=== PATIENT | male | born 1960 | race Caucasian/White ===

== ENCOUNTER 2018-01-03 12:28 | Inpatient (IN) ==
[2018-01-03] MEDS ORDERED: SODIUM CHLORIDE 0.9% 500 ML IV STA (12:52)
[2018-01-03] MEDS ORDERED: PANTOPRAZOLE 40 MG VIAL IV STA (12:52)
[2018-01-03 13:02] LABS: Basophils % 0.1 % (0.0-0.8); Hematocrit 17.3 VOL% (42.0-52.0); Immature Granulocytes % 2.2 %; Immature Granulocytes Absolute 0.26 #; Lymphocytes # 2.1 10*3/uL (1.4-4.0); Lymphocytes % 17.3 % (21.2-54.2); Mean Corpuscular HGB Conc 30.1 GM/DL (32-36); Mean Corpuscular Hemoglobin 29 PG (27-34); Mean Corpuscular Volume 95.1 FL (87-102); Monocytes # 0.8 10*3/uL (0.11-0.8); Monocytes % 6.4 % (1.7-12.7); Neutrophils # 8.8 10*3/uL (1.4-7.4); Platelet Count 91 T/CUMM (130-400); Red Blood Count 1.82 MC/CUMM (3.8-5.5); Red Cell Distribution Width 15.6 % (9.3-17.3); White Blood Count 11.9 T/CUMM (4-12)
[2018-01-03] MEDS ORDERED: PANTOPRAZOLE 40 MG VIAL IV ONE (13:08)
[2018-01-03 13:26] LABS: INR 1.1; PT Patient Result 11.4 SECS
[2018-01-03 13:33] LABS: Hemoglobin 5.2 GM/DL (14.0-18.0)
[2018-01-03 13:36] LABS: Partial Thromboplastin Time 105.7 SECS (0-40)
[2018-01-03 13:42] LABS: Hypochromasia Slight; Macrocytosis 1+
[2018-01-03 13:47] LABS: Alanine Aminotransferase < 9 U/L (16-61); Albumin 2.3 G/DL (3.4-5.0); Alkaline Phosphatase 49 U/L (45-117); Aspartate Amino Transferase 11 U/L (0-37); Blood Urea Nitrogen 68 MG/DL (7-18); Calcium 7.3 MG/DL (8.5-10.1); Glucose 90 MG/DL (74-106); Osmolality,Calculated 294.7 MOS/KG (273-304); Potassium 5.3 MMOL/L (3.5-5.1); Sodium 138 MMOL/L (136-145); Total Protein 3.9 G/DL (6.4-8.3)
[2018-01-03] MEDS ORDERED: MORPHINE 2 MG/1 ML SYRINGE IV PRN (14:34)
[2018-01-03] MEDS ORDERED: diphenhydrAMINE CAP 25 MG CAPSULE PO PRN (14:34)
[2018-01-03] MEDS ORDERED: ACETAMINOPHEN 325 MG TABLET PO PRN (14:34)
[2018-01-03] MEDS ORDERED: guaiFENesin/DM ER 600-30 MG TABLET PO PRN (14:34)
[2018-01-03] MEDS ORDERED: ONDANSETRON 4 MG/2 ML VIAL IV PRN (14:34)
[2018-01-03] MEDS ORDERED: SODIUM CHLORIDE 0.9% 1,000 ML IV PRN (14:37)
[2018-01-03] MEDS ORDERED: SODIUM POLYSTYRENE SULFATE 15 GM/60 ML BOTTLE PO ONE (15:16)
[2018-01-03 16:35] LABS: Hematocrit 15.3 VOL% (42.0-52.0); Hemoglobin 4.5 GM/DL (14.0-18.0)
[2018-01-03] MEDS: PANTOPRAZOLE 40 MG VIAL IV SCH ×2 (17:28→22:14)
[2018-01-03] MEDS ORDERED: FUROSEMIDE 40 MG/4 ML VIAL IV ONE (17:43)
[2018-01-03] MEDS ORDERED: CALCIUM GLUCONATE 1,000 MG in SODIUM CHLORIDE 0.9% 100 ML IV ONE (20:11)
[2018-01-04 01:52] LABS: Hematocrit 23.6 VOL% (42.0-52.0)
[2018-01-04 01:54] LABS: Basophils % 0.2 % (0.0-0.8); Hematocrit 23.8 VOL% (42.0-52.0); Hemoglobin 7.6 GM/DL (14.0-18.0); Immature Granulocytes % 1.5 %; Immature Granulocytes Absolute 0.16 #; Lymphocytes # 2.2 10*3/uL (1.4-4.0); Lymphocytes % 20.6 % (21.2-54.2); Mean Corpuscular HGB Conc 31.9 GM/DL (32-36); Mean Corpuscular Hemoglobin 29 PG (27-34); Mean Corpuscular Volume 91.9 FL (87-102); Mean Platelet Volume 12.8 FL (9.6-12.0); Monocytes # 0.7 10*3/uL (0.11-0.8); Monocytes % 6.6 % (1.7-12.7); Neutrophils # 7.5 10*3/uL (1.4-7.4); Neutrophils % 71.1 % (38.7-73.9); Platelet Count 75 T/CUMM (130-400); Red Blood Count 2.59 MC/CUMM (3.8-5.5); Red Cell Distribution Width 15.7 % (9.3-17.3); White Blood Count 10.5 T/CUMM (4-12)
[2018-01-04 03:05] LABS: Alanine Aminotransferase < 6 U/L (16-61); Albumin 2.2 G/DL (3.4-5.0); Alkaline Phosphatase 50 U/L (45-117); Aspartate Amino Transferase 12 U/L (0-37); Blood Urea Nitrogen 66 MG/DL (7-18); Calcium 7.4 MG/DL (8.5-10.1); Glucose 75 MG/DL (74-106); Osmolality,Calculated 290.8 MOS/KG (273-304); Potassium 5.5 MMOL/L (3.5-5.1); Sodium 137 MMOL/L (136-145); Total Protein 3.9 G/DL (6.4-8.3)
[2018-01-04 03:31] LABS: Anisocytosis 1+; Poikilocytosis 1+
[2018-01-04 05:46] LABS: Hematocrit 21.8 VOL% (42.0-52.0); Hemoglobin 6.8 GM/DL (14.0-18.0)
[2018-01-04] MEDS ORDERED: SODIUM CHLORIDE 0.9% 1,000 ML IV PRN (07:12)
[2018-01-04 08:02] LABS: Hematocrit 24.7 VOL% (42.0-52.0); Hemoglobin 7.8 GM/DL (14.0-18.0)
[2018-01-04] MEDS: SODIUM CHLORIDE 0.9% 1,000 ML IV SCH (08:36)
[2018-01-04] MEDS: PANTOPRAZOLE 40 MG VIAL IV SCH ×2 (09:03→21:36)
[2018-01-04] MEDS: BISACODYL 5 MG TABLET PO SCH ×3 (09:03→23:29)
[2018-01-04] MEDS: MYCOPHENOLATE 180 MG TABLET PO SCH (10:37)
[2018-01-04] MEDS: predniSONE 10 MG TABLET PO SCH (10:37)
[2018-01-04] MEDS ORDERED: FUROSEMIDE 40 MG/4 ML VIAL IV ONE (11:00)
[2018-01-04] MEDS ORDERED: CALCIUM GLUCONATE 1,000 MG in SODIUM CHLORIDE 0.9% 100 ML IV ONE (11:00)
[2018-01-04 11:12] LABS: PT Patient Result 10.7 SECS; Partial Thromboplastin Time 32.7 SECS (0-40)
[2018-01-04] MEDS ORDERED: POLYETHYLENE GLYCOL 3350/ELECTROLYTES 4,000 ML BOTTLE NG ONE (17:00)
[2018-01-04 18:20] LABS: Hematocrit 32.2 VOL% (42.0-52.0); Hemoglobin 10.6 GM/DL (14.0-18.0)
[2018-01-04] MEDS ORDERED: MAGNESIUM CITRATE 300 ML BOTTLE PO ONE (21:00)
[2018-01-04] MEDS: TAMSULOSIN 0.4 MG CAPSULE PO SCH (21:36)
[2018-01-05 03:55] LABS: Calcium 7.9 MG/DL (8.5-10.1); Osmolality,Calculated 285.1 MOS/KG (273-304)
[2018-01-05 07:31] LABS: Hematocrit 31.5 VOL% (42.0-52.0); Hemoglobin 10.3 GM/DL (14.0-18.0)
[2018-01-05] MEDS: SODIUM BICARBONATE 650 MG TABLET PO SCH ×2 (08:42→20:52)
[2018-01-05] MEDS: MYCOPHENOLATE 180 MG TABLET PO SCH (08:42)
[2018-01-05] MEDS: PANTOPRAZOLE 40 MG VIAL IV SCH ×2 (08:42→20:53)
[2018-01-05] MEDS: predniSONE 10 MG TABLET PO SCH (08:42)
[2018-01-05] MEDS ORDERED: PROPOFOL 200 MG/20 ML VIAL IV ONE (11:19)
[2018-01-05] MEDS ORDERED: LIDOCAINE 2% 5 ML VIAL ONE (11:19)
[2018-01-05 19:27] LABS: Hematocrit 28.9 VOL% (42.0-52.0); Hemoglobin 9.8 GM/DL (14.0-18.0)
[2018-01-05] MEDS: TAMSULOSIN 0.4 MG CAPSULE PO SCH (20:53)
[2018-01-06 05:57] LABS: Hematocrit 27.4 VOL% (42.0-52.0); Hemoglobin 9.3 GM/DL (14.0-18.0)
[2018-01-06 07:34] VITALS: BP 144/90
[2018-01-06 08:02] LABS: Calcium 7.2 MG/DL (8.5-10.1); Osmolality,Calculated 295.5 MOS/KG (273-304); Potassium 4.3 MMOL/L (3.5-5.1)
[2018-01-06] MEDS: PANTOPRAZOLE 40 MG VIAL IV SCH (09:06)
[2018-01-06] MEDS: predniSONE 10 MG TABLET PO SCH (09:06)
[2018-01-06] MEDS: MYCOPHENOLATE 180 MG TABLET PO SCH (09:06)
[2018-01-06] MEDS: SODIUM BICARBONATE 650 MG TABLET PO SCH (09:06)
[2018-01-06] MEDS ORDERED: HEPARIN LOCK FLUSH 500 UNIT/5 ML SYRINGE IV ONE (09:38)
[2018-01-06] MEDS ORDERED: EPOETIN ALFA 10,000 UNIT/1 ML VIAL SUBCUT ONE (10:00)
== END 2018-01-06 10:41 | disposition home or self-care (01) | DRG 378 ==
LOC: EDUNIT# → EDBD → N.ED 12:28 → N.EDINP 14:34 → N.5E 15:45 → N.CC 18:01 → N.ICU 01-04 16:53 → N.2E 01-05 16:21
PROVIDERS: ADMIT Internal Medicine Infectious Disease; ATTEND Internal Medicine Infectious Disease

== ENCOUNTER 2018-02-06 17:21 | Inpatient (IN) ==
[2018-02-06] MEDS ORDERED: PANTOPRAZOLE 40 MG VIAL IV STA (18:55)
[2018-02-06 19:13] LABS: Hematocrit 22.7 VOL% (42.0-52.0); Hemoglobin 6.9 GM/DL (14.0-18.0); Red Blood Count 2.51 MC/CUMM (3.8-5.5); White Blood Count 9.1 T/CUMM (4-12)
[2018-02-06 19:14] LABS: Basophils % 0.1 % (0.0-0.8); Immature Granulocytes % 0.8 %; Immature Granulocytes Absolute 0.07 #; Lymphocytes # 0.9 10*3/uL (1.4-4.0); Mean Corpuscular HGB Conc 30.4 GM/DL (32-36); Mean Corpuscular Hemoglobin 28 PG (27-34); Mean Corpuscular Volume 90.4 FL (87-102); Mean Platelet Volume 12.8 FL (9.6-12.0); Monocytes # 0.5 10*3/uL (0.11-0.8); Neutrophils # 7.7 10*3/uL (1.4-7.4); Neutrophils % 84.1 % (38.7-73.9); Platelet Count 83 T/CUMM (130-400); Red Cell Distribution Width 15.9 % (9.3-17.3)
[2018-02-06 19:18] LABS: INR 1.1; PT Patient Result 11.4 SECS; Partial Thromboplastin Time 38.6 SECS (0-40)
[2018-02-06] MEDS ORDERED: PANTOPRAZOLE 40 MG VIAL IV ONE (19:20)
[2018-02-06 19:26] LABS: Alanine Aminotransferase < 9 U/L (16-61); Albumin 2.2 G/DL (3.4-5.0); Alkaline Phosphatase 60 U/L (45-117); Aspartate Amino Transferase 16 U/L (0-37); Blood Urea Nitrogen 43 MG/DL (7-18); Calcium 7.5 MG/DL (8.5-10.1); Glucose 89 MG/DL (74-106); Osmolality,Calculated 275.4 MOS/KG (273-304); Potassium 5.2 MMOL/L (3.5-5.1); Sodium 133 MMOL/L (136-145); Total Protein 4.3 G/DL (6.4-8.3); Troponin I Only < 0.015 NG/ML (0.00-0.045)
[2018-02-06] MEDS ORDERED: SODIUM CHLORIDE 0.9% 1,000 ML IV PRN (20:09)
[2018-02-06 20:20] LABS: Lymphocytes 6 % (20-55); Segmented Neutrophils 93 % (50-85); Total Cells Counted 100
[2018-02-06 20:21] LABS: Anisocytosis 1+; Hypochromasia 1+
[2018-02-06 20:22] LABS: Acanthocytes Few; Ovalocytes Few
[2018-02-06 20:23] LABS: Platelet Estimate Decreased
[2018-02-06] MEDS ORDERED: TAMSULOSIN 0.4 MG CAPSULE PO SCH (21:00)
[2018-02-06] MEDS ORDERED: PRAVASTATIN 20 MG TABLET PO SCH (21:00)
[2018-02-06] MEDS ORDERED: METOCLOPRAMIDE 10 MG TABLET PO SCH (21:00)
[2018-02-06] MEDS: SODIUM BICARBONATE 650 MG TABLET PO SCH (22:40)
[2018-02-06] MEDS: PROPRANOLOL 20 MG TABLET PO SCH (22:41)
[2018-02-06] MEDS: MAGNESIUM OXIDE 400 MG TABLET PO SCH (22:41)
[2018-02-07 06:12] LABS: Basophils % 0.1 % (0.0-0.8); Hematocrit 25.7 VOL% (42.0-52.0); Immature Granulocytes % 0.8 %; Immature Granulocytes Absolute 0.07 #; Lymphocytes # 1.3 10*3/uL (1.4-4.0); Lymphocytes % 14.4 % (21.2-54.2); Mean Corpuscular HGB Conc 32.3 GM/DL (32-36); Mean Corpuscular Hemoglobin 29 PG (27-34); Mean Corpuscular Volume 89.2 FL (87-102); Mean Platelet Volume 12.6 FL (9.6-12.0); Monocytes # 0.7 10*3/uL (0.11-0.8); Neutrophils # 7.2 10*3/uL (1.4-7.4); Neutrophils % 77.7 % (38.7-73.9); Platelet Count 75 T/CUMM (130-400); Red Blood Count 2.88 MC/CUMM (3.8-5.5); Red Cell Distribution Width 15.4 % (9.3-17.3); White Blood Count 9.2 T/CUMM (4-12)
[2018-02-07 06:32] LABS: Hemoglobin 8.3 GM/DL (14.0-18.0)
[2018-02-07 06:38] LABS: Platelet Estimate Decreased
[2018-02-07 06:41] LABS: Calcium 7.3 MG/DL (8.5-10.1); Osmolality,Calculated 274.5 MOS/KG (273-304); Potassium 5.1 MMOL/L (3.5-5.1)
[2018-02-07] MEDS ORDERED: ALLOPURINOL 100 MG TABLET PO SCH (09:00)
[2018-02-07] MEDS ORDERED: RAMIPRIL 5 MG CAPSULE PO SCH (09:00)
[2018-02-07] MEDS ORDERED: PANTOPRAZOLE 40 MG TABLET PO SCH (09:00)
[2018-02-07] MEDS ORDERED: MYCOPHENOLATE 180 MG TABLET PO SCH (09:00)
[2018-02-07] MEDS ORDERED: METOCLOPRAMIDE 10 MG TABLET PO SCH (09:00)
[2018-02-07] MEDS ORDERED: predniSONE 10 MG TABLET PO SCH (09:00)
[2018-02-07] MEDS: SODIUM BICARBONATE 650 MG TABLET PO SCH (09:27)
[2018-02-07] MEDS: MAGNESIUM OXIDE 400 MG TABLET PO SCH (09:27)
[2018-02-07] MEDS: PROPRANOLOL 20 MG TABLET PO SCH (09:27)
[2018-02-07 12:32] VITALS: BP 102/66
== END 2018-02-07 14:36 | disposition home or self-care (01) | DRG 392 ==
LOC: N.ED 17:21 → N.EDINP 20:48 → N.4E 21:27
PROVIDERS: ADMIT Hospitalist; ATTEND Hospitalist

== ENCOUNTER 2018-02-27 19:36 | Inpatient (IN) ==
[2018-02-27] MEDS ORDERED: SODIUM CHLORIDE 0.9% 1,000 ML IV STA (20:24)
[2018-02-27] MEDS ORDERED: ALBUTEROL/IPRATROPIUM 3 ML NEB RESP TX STA (20:24)
[2018-02-27] MEDS ORDERED: MEROPENEM 1,000 MG in SODIUM CHLORIDE 0.9% 100 ML IV STA (20:24)
[2018-02-27] MEDS ORDERED: ONDANSETRON 4 MG/2 ML VIAL IV STA (20:24)
[2018-02-27] MEDS ORDERED: ASPIRIN 325 MG TABLET PO STA (21:43)
[2018-02-27] MEDS ORDERED: MORPHINE 4 MG/1 ML VIAL IV STA (21:43)
[2018-02-27 22:26] LABS: Hematocrit 24.5 VOL% (42.0-52.0); Hemoglobin 7.3 GM/DL (14.0-18.0); Immature Granulocytes % 0.4 %; Immature Granulocytes Absolute 0.02 #; Lymphocytes # 0.8 10*3/uL (1.4-4.0); Lymphocytes % 14.5 % (21.2-54.2); Mean Corpuscular HGB Conc 29.8 GM/DL (32-36); Mean Corpuscular Hemoglobin 27 PG (27-34); Mean Corpuscular Volume 91.8 FL (87-102); Mean Platelet Volume 13.4 FL (9.6-12.0); Monocytes # 0.4 10*3/uL (0.11-0.8); Monocytes % 8.2 % (1.7-12.7); Neutrophils # 4.2 10*3/uL (1.4-7.4); Neutrophils % 76.9 % (38.7-73.9); Red Blood Count 2.67 MC/CUMM (3.8-5.5); Red Cell Distribution Width 15.9 % (9.3-17.3); White Blood Count 5.4 T/CUMM (4-12)
[2018-02-27 22:32] LABS: Platelet Count 42 T/CUMM (130-400)
[2018-02-27 22:33] LABS: INR 1.1; PT Patient Result 11.2 SECS; Partial Thromboplastin Time 36.2 SECS (0-40)
[2018-02-27 22:46] LABS: Alanine Aminotransferase < 9 U/L (16-61); Albumin 1.8 G/DL (3.4-5.0); Alkaline Phosphatase 62 U/L (45-117); Aspartate Amino Transferase 8 U/L (0-37); Blood Urea Nitrogen 84 MG/DL (7-18); Calcium 7.2 MG/DL (8.5-10.1); Glucose 92 MG/DL (74-106); Osmolality,Calculated 295.1 MOS/KG (273-304); Potassium 4.8 MMOL/L (3.5-5.1); Sodium 135 MMOL/L (136-145); Total Protein 4.1 G/DL (6.4-8.3)
[2018-02-27 22:49] LABS: Band Neutrophils 7 % (0-10); Lymphocytes 15 % (20-55); Segmented Neutrophils 72 % (50-85); Total Cells Counted 100
[2018-02-27] MEDS ORDERED: ACETAMINOPHEN 325 MG TABLET PO PRN (23:12)
[2018-02-27] MEDS ORDERED: ALBUTEROL/IPRATROPIUM 3 ML NEB RESP TX PRN (23:12)
[2018-02-27] MEDS ORDERED: ONDANSETRON 4 MG/2 ML VIAL IV PRN (23:12)
[2018-02-27] MEDS ORDERED: LEVOFLOXACIN INJ 500 MG in PREMIX 1 EACH IV ONE (23:30)
[2018-02-27 23:56] LABS: Hypochromasia 1+; Polychromasia Few
[2018-02-27 23:57] LABS: Elliptocytes 1+; Ovalocytes 1+; Platelet Estimate Decreased
[2018-02-28] MEDS ORDERED: ACETAMINOPHEN 500 MG TABLET PO PRN (00:11)
[2018-02-28] MEDS ORDERED: SODIUM CHLORIDE 0.9% 1,000 ML IV PRN ×2 (01:09→11:18)
[2018-02-28] MEDS: PIPERACILLIN/TAZOBACTAM 3,375 MG in SODIUM CHLORIDE 0.9% 100 ML IV SCH ×3 (01:40→23:38)
[2018-02-28] MEDS: TAMSULOSIN 0.4 MG CAPSULE PO SCH ×2 (01:40→20:19)
[2018-02-28] MEDS: MAGNESIUM OXIDE 400 MG TABLET PO SCH ×2 (08:12→20:19)
[2018-02-28] MEDS: SODIUM BICARBONATE 650 MG TABLET PO SCH ×2 (08:12→20:20)
[2018-02-28] MEDS: PROPRANOLOL 20 MG TABLET PO SCH ×2 (08:12→20:20)
[2018-02-28] MEDS: FERROUS SULFATE 325 MG TABLET PO SCH ×2 (08:12→20:20)
[2018-02-28] MEDS: ALLOPURINOL 100 MG TABLET PO SCH (08:12)
[2018-02-28] MEDS: predniSONE 10 MG TABLET PO SCH (08:13)
[2018-02-28] MEDS: MYCOPHENOLATE 180 MG TABLET PO SCH (08:13)
[2018-02-28] MEDS: PANTOPRAZOLE 40 MG TABLET PO SCH (08:13)
[2018-02-28] MEDS: METOCLOPRAMIDE 5 MG TABLET PO SCH ×2 (08:13→20:19)
[2018-02-28] MEDS ORDERED: PANTOPRAZOLE 40 MG TABLET PO SCH (09:00)
[2018-02-28] MEDS ORDERED: ENOXAPARIN 30 MG/0.3 ML SYRINGE SUBCUT SCH (09:00)
[2018-02-28 09:32] LABS: Hematocrit 28.1 VOL% (42.0-52.0); Immature Granulocytes % 0.4 %; Immature Granulocytes Absolute 0.02 #; Lymphocytes # 0.8 10*3/uL (1.4-4.0); Lymphocytes % 15.9 % (21.2-54.2); Mean Corpuscular HGB Conc 32.7 GM/DL (32-36); Mean Corpuscular Hemoglobin 28 PG (27-34); Mean Corpuscular Volume 86.7 FL (87-102); Mean Platelet Volume 13.1 FL (9.6-12.0); Monocytes # 0.4 10*3/uL (0.11-0.8); Monocytes % 7.8 % (1.7-12.7); Neutrophils # 3.8 10*3/uL (1.4-7.4); Neutrophils % 75.9 % (38.7-73.9); Red Cell Distribution Width 15.6 % (9.3-17.3)
[2018-02-28 09:37] LABS: Hemoglobin 9.2 GM/DL (14.0-18.0); Red Blood Count 3.24 MC/CUMM (3.8-5.5)
[2018-02-28 09:39] LABS: Platelet Count 38 T/CUMM (130-400)
[2018-02-28 10:00] LABS: Alanine Aminotransferase < 6 U/L (16-61); Albumin 1.8 G/DL (3.4-5.0); Alkaline Phosphatase 61 U/L (45-117); Aspartate Amino Transferase 13 U/L (0-37); Blood Urea Nitrogen 76 MG/DL (7-18); Calcium 6.9 MG/DL (8.5-10.1); Glucose 96 MG/DL (74-106); Osmolality,Calculated 295.8 MOS/KG (273-304); Potassium 4.7 MMOL/L (3.5-5.1); Sodium 137 MMOL/L (136-145); Total Protein 3.7 G/DL (6.4-8.3)
[2018-02-28 10:39] LABS: Band Neutrophils 1 % (0-10); Hypochromasia 1+; Lymphocytes 10 % (20-55); Microcytosis 1+; Ovalocytes Slight; Platelet Estimate Decreased; Segmented Neutrophils 85 % (50-85); Total Cells Counted 100
[2018-02-28 17:24] LABS: Hematocrit 27.8 VOL% (42.0-52.0); Hemoglobin 8.8 GM/DL (14.0-18.0)
[2018-02-28] MEDS: PRAVASTATIN 20 MG TABLET PO SCH (20:20)
[2018-02-28] MEDS: OXYBUTYNIN XL 5 MG TABLET PO SCH (20:20)
[2018-02-28] MEDS: ASPIRIN CHEW 81 MG TABLET PO SCH (20:20)
[2018-03-01 01:26] LABS: Hematocrit 25.9 VOL% (42.0-52.0); Hemoglobin 8.3 GM/DL (14.0-18.0)
[2018-03-01 06:55] LABS: Hematocrit 27.3 VOL% (42.0-52.0); Hemoglobin 8.8 GM/DL (14.0-18.0)
[2018-03-01 06:57] LABS: Basophils % 0.2 % (0.0-0.8); Hematocrit 27.6 VOL% (42.0-52.0); Hemoglobin 8.9 GM/DL (14.0-18.0); Immature Granulocytes % 0.8 %; Immature Granulocytes Absolute 0.04 #; Lymphocytes # 0.9 10*3/uL (1.4-4.0); Lymphocytes % 17.2 % (21.2-54.2); Mean Corpuscular HGB Conc 32.2 GM/DL (32-36); Mean Corpuscular Hemoglobin 28 PG (27-34); Mean Corpuscular Volume 87.6 FL (87-102); Mean Platelet Volume 13.9 FL (9.6-12.0); Monocytes # 0.3 10*3/uL (0.11-0.8); Monocytes % 6.9 % (1.7-12.7); Neutrophils # 3.7 10*3/uL (1.4-7.4); Neutrophils % 74.9 % (38.7-73.9); Red Blood Count 3.15 MC/CUMM (3.8-5.5); Red Cell Distribution Width 15.9 % (9.3-17.3); White Blood Count 4.9 T/CUMM (4-12)
[2018-03-01 07:12] LABS: Platelet Count 35 T/CUMM (130-400)
[2018-03-01 07:25] LABS: Alanine Aminotransferase < 6 U/L (16-61); Albumin 1.7 G/DL (3.4-5.0); Alkaline Phosphatase 66 U/L (45-117); Aspartate Amino Transferase 13 U/L (0-37); Blood Urea Nitrogen 70 MG/DL (7-18); Calcium 7.1 MG/DL (8.5-10.1); Glucose 87 MG/DL (74-106); Osmolality,Calculated 294.7 MOS/KG (273-304); Potassium 4.3 MMOL/L (3.5-5.1); Sodium 138 MMOL/L (136-145); Total Protein 3.7 G/DL (6.4-8.3)
[2018-03-01 07:36] LABS: Eosinophils 1 % (0-10); Hypochromasia 1+; Lymphocytes 10 % (20-55); Microcytosis 1+; Segmented Neutrophils 88 % (50-85); Total Cells Counted 100
[2018-03-01 07:37] LABS: Ovalocytes Slight; Platelet Estimate Decreased
[2018-03-01] MEDS: ALLOPURINOL 100 MG TABLET PO SCH (08:12)
[2018-03-01] MEDS: predniSONE 10 MG TABLET PO SCH (08:12)
[2018-03-01] MEDS: PROPRANOLOL 20 MG TABLET PO SCH ×2 (08:12→21:31)
[2018-03-01] MEDS: FERROUS SULFATE 325 MG TABLET PO SCH ×2 (08:13→21:32)
[2018-03-01] MEDS: MYCOPHENOLATE 180 MG TABLET PO SCH (08:13)
[2018-03-01] MEDS: PANTOPRAZOLE 40 MG TABLET PO SCH (08:13)
[2018-03-01] MEDS: METOCLOPRAMIDE 5 MG TABLET PO SCH ×2 (08:13→21:31)
[2018-03-01] MEDS: SODIUM BICARBONATE 650 MG TABLET PO SCH ×2 (08:13→21:31)
[2018-03-01] MEDS: MAGNESIUM OXIDE 400 MG TABLET PO SCH ×2 (08:13→21:31)
[2018-03-01] MEDS: PIPERACILLIN/TAZOBACTAM 3,375 MG in SODIUM CHLORIDE 0.9% 100 ML IV SCH (11:22)
[2018-03-01 12:13] LABS: Hematocrit 26.8 VOL% (42.0-52.0); Hemoglobin 8.4 GM/DL (14.0-18.0)
[2018-03-01 18:15] LABS: Hemoglobin 8.4 GM/DL (14.0-18.0)
[2018-03-01] MEDS: TAMSULOSIN 0.4 MG CAPSULE PO SCH (21:31)
[2018-03-01] MEDS: OXYBUTYNIN XL 5 MG TABLET PO SCH (21:31)
[2018-03-01] MEDS: ASPIRIN CHEW 81 MG TABLET PO SCH (21:31)
[2018-03-01] MEDS: PRAVASTATIN 20 MG TABLET PO SCH (21:31)
[2018-03-01] MEDS: LEVOFLOXACIN INJ 250 MG in PREMIX 1 EACH IV SCH (22:32)
[2018-03-02] MEDS: PIPERACILLIN/TAZOBACTAM 3,375 MG in SODIUM CHLORIDE 0.9% 100 ML IV SCH ×4 (00:11→23:02)
[2018-03-02 08:10] LABS: Calcium 7.1 MG/DL (8.5-10.1); Osmolality,Calculated 291.8 MOS/KG (273-304)
[2018-03-02 08:33] LABS: Eosinophils % 0.5 % (0.00-10.9); Hematocrit 25.8 VOL% (42.0-52.0); Hemoglobin 8.1 GM/DL (14.0-18.0); Immature Granulocytes % 0.5 %; Immature Granulocytes Absolute 0.02 #; Lymphocytes # 0.7 10*3/uL (1.4-4.0); Lymphocytes % 15.4 % (21.2-54.2); Mean Corpuscular HGB Conc 31.4 GM/DL (32-36); Mean Corpuscular Hemoglobin 29 PG (27-34); Mean Corpuscular Volume 91.2 FL (87-102); Mean Platelet Volume 13.5 FL (9.6-12.0); Monocytes # 0.3 10*3/uL (0.11-0.8); Monocytes % 6.3 % (1.7-12.7); Neutrophils # 3.4 10*3/uL (1.4-7.4); Neutrophils % 77.3 % (38.7-73.9); Red Blood Count 2.83 MC/CUMM (3.8-5.5); Red Cell Distribution Width 15.7 % (9.3-17.3); White Blood Count 4.4 T/CUMM (4-12)
[2018-03-02 08:40] LABS: Platelet Count 54 T/CUMM (130-400)
[2018-03-02 09:19] LABS: Elliptocytes 1+; Hypochromasia Slight; Platelet Estimate Decreased; Poikilocytosis Slight
[2018-03-02] MEDS: METOCLOPRAMIDE 5 MG TABLET PO SCH ×2 (09:56→20:53)
[2018-03-02] MEDS: MAGNESIUM OXIDE 400 MG TABLET PO SCH ×2 (09:56→20:53)
[2018-03-02] MEDS: FERROUS SULFATE 325 MG TABLET PO SCH ×2 (09:56→20:56)
[2018-03-02] MEDS: PANTOPRAZOLE 40 MG TABLET PO SCH (09:56)
[2018-03-02] MEDS: MYCOPHENOLATE 180 MG TABLET PO SCH (09:56)
[2018-03-02] MEDS: SODIUM BICARBONATE 650 MG TABLET PO SCH ×2 (09:56→20:52)
[2018-03-02] MEDS: ALLOPURINOL 100 MG TABLET PO SCH (09:56)
[2018-03-02] MEDS: PROPRANOLOL 20 MG TABLET PO SCH ×2 (09:57→20:52)
[2018-03-02] MEDS: predniSONE 10 MG TABLET PO SCH (09:57)
[2018-03-02] MEDS ORDERED: LIDOCAINE 2% VISCOUS 100 ML BOTTLE SWISH/SWAL PRN (13:02)
[2018-03-02] MEDS: SUCRALFATE 1 GM/10 ML UDCUP PO SCH ×2 (17:00→20:53)
[2018-03-02] MEDS: TAMSULOSIN 0.4 MG CAPSULE PO SCH (20:52)
[2018-03-02] MEDS: PRAVASTATIN 20 MG TABLET PO SCH (20:52)
[2018-03-02] MEDS: ASPIRIN CHEW 81 MG TABLET PO SCH (20:52)
[2018-03-02] MEDS: OXYBUTYNIN XL 5 MG TABLET PO SCH (20:53)
[2018-03-03 05:33] LABS: Eosinophils % 0.2 % (0.00-10.9); Hematocrit 27.4 VOL% (42.0-52.0); Hemoglobin 8.4 GM/DL (14.0-18.0); Immature Granulocytes % 1.1 %; Immature Granulocytes Absolute 0.05 #; Lymphocytes # 0.7 10*3/uL (1.4-4.0); Mean Corpuscular HGB Conc 30.7 GM/DL (32-36); Mean Corpuscular Hemoglobin 28 PG (27-34); Mean Platelet Volume 13.3 FL (9.6-12.0); Monocytes # 0.3 10*3/uL (0.11-0.8); Monocytes % 6.2 % (1.7-12.7); Neutrophils # 3.5 10*3/uL (1.4-7.4); Neutrophils % 77.5 % (38.7-73.9); Platelet Count 49 T/CUMM (130-400); Red Blood Count 3.01 MC/CUMM (3.8-5.5); Red Cell Distribution Width 15.5 % (9.3-17.3); White Blood Count 4.5 T/CUMM (4-12)
[2018-03-03 05:51] LABS: Hypochromasia 1+; Ovalocytes Slight; Platelet Estimate Decreased
[2018-03-03 05:52] LABS: Giant Platelets Few; Microcytosis Slight
[2018-03-03] MEDS: SUCRALFATE 1 GM/10 ML UDCUP PO SCH ×4 (06:35→20:09)
[2018-03-03] MEDS: ALLOPURINOL 100 MG TABLET PO SCH (09:53)
[2018-03-03] MEDS: FERROUS SULFATE 325 MG TABLET PO SCH ×2 (09:54→20:08)
[2018-03-03] MEDS: MAGNESIUM OXIDE 400 MG TABLET PO SCH ×2 (09:54→20:08)
[2018-03-03] MEDS: MYCOPHENOLATE 180 MG TABLET PO SCH (09:54)
[2018-03-03] MEDS: predniSONE 10 MG TABLET PO SCH (09:54)
[2018-03-03] MEDS: PROPRANOLOL 20 MG TABLET PO SCH ×2 (09:54→20:09)
[2018-03-03] MEDS: METOCLOPRAMIDE 5 MG TABLET PO SCH ×2 (09:54→20:08)
[2018-03-03] MEDS: PANTOPRAZOLE 40 MG TABLET PO SCH (09:55)
[2018-03-03] MEDS: SODIUM BICARBONATE 650 MG TABLET PO SCH ×2 (09:55→20:07)
[2018-03-03] MEDS: PIPERACILLIN/TAZOBACTAM 3,375 MG in SODIUM CHLORIDE 0.9% 100 ML IV SCH ×2 (10:35→23:48)
[2018-03-03] MEDS: SODIUM CHLORIDE 0.9% 1,000 ML IV SCH ×2 (17:55→20:10)
[2018-03-03] MEDS ORDERED: PANTOPRAZOLE 40 MG VIAL IV SCH (18:00)
[2018-03-03 18:32] LABS: Basophils % 0.1 % (0.0-0.8); Hematocrit 26.1 VOL% (42.0-52.0); Hemoglobin 7.9 GM/DL (14.0-18.0); Immature Granulocytes % 0.8 %; Immature Granulocytes Absolute 0.07 #; Lymphocytes # 1.2 10*3/uL (1.4-4.0); Lymphocytes % 12.7 % (21.2-54.2); Mean Corpuscular HGB Conc 30.3 GM/DL (32-36); Mean Corpuscular Hemoglobin 28 PG (27-34); Mean Corpuscular Volume 93.9 FL (87-102); Mean Platelet Volume 14.4 FL (9.6-12.0); Monocytes # 0.6 10*3/uL (0.11-0.8); Monocytes % 6.1 % (1.7-12.7); Neutrophils # 7.5 10*3/uL (1.4-7.4); Neutrophils % 80.3 % (38.7-73.9); Red Blood Count 2.78 MC/CUMM (3.8-5.5); Red Cell Distribution Width 15.4 % (9.3-17.3); White Blood Count 9.3 T/CUMM (4-12)
[2018-03-03 18:36] LABS: Platelet Count 50 T/CUMM (130-400)
[2018-03-03 18:51] LABS: Calcium 6.9 MG/DL (8.5-10.1); Osmolality,Calculated 294.7 MOS/KG (273-304); Potassium 4.7 MMOL/L (3.5-5.1)
[2018-03-03 18:55] LABS: Platelet Estimate Decreased
[2018-03-03] MEDS ORDERED: NOREPINEPHRINE 4 MG/4 ML VIAL IV ONE (19:09)
[2018-03-03] MEDS ORDERED: NOREPINEPHRINE 16 MG in SODIUM CHLORIDE 0.9% 234 ML IV PRN (19:15)
[2018-03-03] MEDS ORDERED: SODIUM CHLORIDE 0.9% 1,000 ML IV PRN ×2 (19:22→19:23)
[2018-03-03] MEDS: TAMSULOSIN 0.4 MG CAPSULE PO SCH (20:07)
[2018-03-03] MEDS: PRAVASTATIN 20 MG TABLET PO SCH (20:08)
[2018-03-03] MEDS: PANTOPRAZOLE 40 MG VIAL IV SCH (20:09)
[2018-03-03] MEDS: OXYBUTYNIN XL 5 MG TABLET PO SCH (20:09)
[2018-03-03] MEDS: ASPIRIN CHEW 81 MG TABLET PO SCH (20:09)
[2018-03-03 23:09] LABS: Hematocrit 26.8 VOL% (42.0-52.0); Hemoglobin 8.4 GM/DL (14.0-18.0)
[2018-03-03] MEDS: LEVOFLOXACIN INJ 250 MG in PREMIX 1 EACH IV SCH (23:45)
[2018-03-04 07:50] LABS: Basophils % 0.2 % (0.0-0.8); Eosinophils % 0.2 % (0.00-10.9); Hematocrit 31.5 VOL% (42.0-52.0); Hemoglobin 10.2 GM/DL (14.0-18.0); Immature Granulocytes % 1.1 %; Immature Granulocytes Absolute 0.07 #; Lymphocytes # 0.8 10*3/uL (1.4-4.0); Lymphocytes % 12.3 % (21.2-54.2); Mean Corpuscular HGB Conc 32.4 GM/DL (32-36); Mean Corpuscular Hemoglobin 28 PG (27-34); Mean Platelet Volume 12.2 FL (9.6-12.0); Monocytes # 0.4 10*3/uL (0.11-0.8); Monocytes % 6.3 % (1.7-12.7); Neutrophils # 5.2 10*3/uL (1.4-7.4); Neutrophils % 79.9 % (38.7-73.9); Platelet Count 49 T/CUMM (130-400); Red Blood Count 3.62 MC/CUMM (3.8-5.5); Red Cell Distribution Width 15.7 % (9.3-17.3); White Blood Count 6.5 T/CUMM (4-12)
[2018-03-04 08:10] LABS: Band Neutrophils 1 % (0-10); Lymphocytes 7 % (20-55); Segmented Neutrophils 90 % (50-85); Total Cells Counted 100
[2018-03-04 08:11] LABS: Hypochromasia 1+; Microcytosis 1+
[2018-03-04 08:12] LABS: Platelet Estimate Decreased
[2018-03-04 08:22] LABS: Calcium 6.7 MG/DL (8.5-10.1); Osmolality,Calculated 294.4 MOS/KG (273-304); Potassium 3.7 MMOL/L (3.5-5.1)
[2018-03-04] MEDS: MAGNESIUM OXIDE 400 MG TABLET PO SCH ×2 (09:26→20:37)
[2018-03-04] MEDS: predniSONE 10 MG TABLET PO SCH (09:26)
[2018-03-04] MEDS: ALLOPURINOL 100 MG TABLET PO SCH (09:26)
[2018-03-04] MEDS: FERROUS SULFATE 325 MG TABLET PO SCH ×2 (09:26→20:36)
[2018-03-04] MEDS: SUCRALFATE 1 GM/10 ML UDCUP PO SCH ×4 (09:26→20:37)
[2018-03-04] MEDS: SODIUM BICARBONATE 650 MG TABLET PO SCH ×2 (09:27→20:36)
[2018-03-04] MEDS: METOCLOPRAMIDE 5 MG TABLET PO SCH ×2 (09:27→21:20)
[2018-03-04] MEDS: MYCOPHENOLATE 180 MG TABLET PO SCH (09:28)
[2018-03-04] MEDS: PANTOPRAZOLE 40 MG VIAL IV SCH ×2 (09:36→20:37)
[2018-03-04] MEDS: PROPRANOLOL 20 MG TABLET PO SCH ×2 (10:56→20:37)
[2018-03-04] MEDS: PIPERACILLIN/TAZOBACTAM 3,375 MG in SODIUM CHLORIDE 0.9% 100 ML IV SCH ×2 (11:48→23:34)
[2018-03-04 13:12] LABS: Hematocrit 31.5 VOL% (42.0-52.0); Hemoglobin 10.6 GM/DL (14.0-18.0)
[2018-03-04] MEDS ORDERED: FUROSEMIDE 20 MG/2 ML VIAL IV SCH (16:00)
[2018-03-04 18:20] LABS: Hematocrit 30.2 VOL% (42.0-52.0); Hemoglobin 9.8 GM/DL (14.0-18.0)
[2018-03-04] MEDS: TAMSULOSIN 0.4 MG CAPSULE PO SCH (20:36)
[2018-03-04] MEDS: PRAVASTATIN 20 MG TABLET PO SCH (20:36)
[2018-03-04] MEDS: OXYBUTYNIN XL 5 MG TABLET PO SCH (20:37)
[2018-03-04] MEDS: ASPIRIN CHEW 81 MG TABLET PO SCH (21:19)
[2018-03-05 04:32] LABS: Hematocrit 30.9 VOL% (42.0-52.0)
[2018-03-05 05:30] LABS: Basophils % 0.2 % (0.0-0.8); Hematocrit 30.9 VOL% (42.0-52.0); Hemoglobin 10.3 GM/DL (14.0-18.0); Immature Granulocytes % 0.6 %; Immature Granulocytes Absolute 0.03 #; Lymphocytes # 0.9 10*3/uL (1.4-4.0); Lymphocytes % 16.2 % (21.2-54.2); Mean Corpuscular HGB Conc 33.3 GM/DL (32-36); Mean Corpuscular Hemoglobin 29 PG (27-34); Mean Corpuscular Volume 86.6 FL (87-102); Mean Platelet Volume 13.3 FL (9.6-12.0); Monocytes # 0.3 10*3/uL (0.11-0.8); Monocytes % 5.7 % (1.7-12.7); Neutrophils # 4.1 10*3/uL (1.4-7.4); Neutrophils % 77.3 % (38.7-73.9); Red Blood Count 3.57 MC/CUMM (3.8-5.5); Red Cell Distribution Width 16.2 % (9.3-17.3); White Blood Count 5.3 T/CUMM (4-12)
[2018-03-05 05:33] LABS: Platelet Count 40 T/CUMM (130-400)
[2018-03-05 05:57] LABS: Hypochromasia Slight; Microcytosis 1+; Ovalocytes Slight
[2018-03-05 05:58] LABS: Platelet Estimate Decreased
[2018-03-05 06:06] LABS: Alanine Aminotransferase < 9 U/L (16-61); Albumin 1.6 G/DL (3.4-5.0); Alkaline Phosphatase 61 U/L (45-117); Aspartate Amino Transferase 15 U/L (0-37); Blood Urea Nitrogen 49 MG/DL (7-18); Calcium 6.8 MG/DL (8.5-10.1); Glucose 74 MG/DL (74-106); Osmolality,Calculated 294.1 MOS/KG (273-304); Potassium 3.4 MMOL/L (3.5-5.1); Sodium 142 MMOL/L (136-145); Total Protein 3.3 G/DL (6.4-8.3)
[2018-03-05] MEDS ORDERED: PROPOFOL 200 MG/20 ML VIAL IV ONE (10:22)
[2018-03-05] MEDS ORDERED: LIDOCAINE 1% 5 ML VIAL ONE (10:22)
[2018-03-05 12:00] VITALS: BP 137/77
== END 2018-03-05 13:28 | disposition home health service (06) | DRG 193 ==
LOC: N.ED 19:36 → N.EDINP 23:14 → SUATTDRO 23:14 → N.5E 23:46 → N.CC 03-03 19:10
PROVIDERS: ADMIT Hospitalist; ATTEND Internal Medicine

== ENCOUNTER 2018-03-06 12:03 | Inpatient (IN) ==
[2018-03-06] MEDS ORDERED: SODIUM CHLORIDE 0.9% 500 ML IV STA (12:56)
[2018-03-06] MEDS ORDERED: ONDANSETRON 4 MG/2 ML VIAL IV STA (12:56)
[2018-03-06 13:43] LABS: Basophils % 0.1 % (0.0-0.8); Eosinophils % 0.1 % (0.00-10.9); Hematocrit 32.5 VOL% (42.0-52.0); Hemoglobin 10.2 GM/DL (14.0-18.0); Immature Granulocytes % 0.9 %; Immature Granulocytes Absolute 0.08 #; Lymphocytes % 11.4 % (21.2-54.2); Mean Corpuscular HGB Conc 31.4 GM/DL (32-36); Mean Corpuscular Hemoglobin 28 PG (27-34); Mean Corpuscular Volume 90.5 FL (87-102); Mean Platelet Volume 12.7 FL (9.6-12.0); Monocytes # 0.3 10*3/uL (0.11-0.8); Monocytes % 3.5 % (1.7-12.7); Neutrophils # 7.5 10*3/uL (1.4-7.4); Red Blood Count 3.59 MC/CUMM (3.8-5.5); Red Cell Distribution Width 16.2 % (9.3-17.3); White Blood Count 8.9 T/CUMM (4-12)
[2018-03-06 13:45] LABS: Platelet Count 39 T/CUMM (130-400)
[2018-03-06 14:01] LABS: Albumin 1.5 G/DL (3.4-5.0); Bilirubin,Total 0.6 MG/DL (0.2-1.0); Calcium 7.1 MG/DL (8.5-10.1); Osmolality,Calculated 284.8 MOS/KG (273-304); Potassium 4.1 MMOL/L (3.5-5.1); Total Protein 3.4 G/DL (6.4-8.3)
[2018-03-06 14:15] LABS: Band Neutrophils 3 % (0-10); Lymphocytes 8 % (20-55); Segmented Neutrophils 84 % (50-85); Total Cells Counted 100
[2018-03-06 14:16] LABS: Anisocytosis 1+; Platelet Estimate Decreased
[2018-03-06] MEDS ORDERED: ACETAMINOPHEN 325 MG TABLET PO PRN (15:19)
[2018-03-06] MEDS ORDERED: LIDOCAINE 2% VISCOUS 100 ML BOTTLE SWISH/SWAL PRN (15:24)
[2018-03-06] MEDS: SODIUM CHLORIDE 0.9% 1,000 ML IV SCH (18:15)
[2018-03-06] MEDS: SUCRALFATE 1 GM/10 ML UDCUP PO SCH ×2 (18:20→22:07)
[2018-03-06] MEDS: LEVOFLOXACIN 250 MG TABLET PO SCH (18:20)
[2018-03-06] MEDS: ALBUTEROL/IPRATROPIUM 3 ML NEB RESP TX SCH ×2 (20:10→23:54)
[2018-03-06] MEDS: PROPRANOLOL 20 MG TABLET PO SCH (22:07)
[2018-03-06] MEDS: TAMSULOSIN 0.4 MG CAPSULE PO SCH (22:07)
[2018-03-06] MEDS: PANTOPRAZOLE 40 MG VIAL IV SCH (22:07)
[2018-03-06] MEDS: SODIUM BICARBONATE 650 MG TABLET PO SCH (22:08)
[2018-03-06] MEDS: MAGNESIUM OXIDE 400 MG TABLET PO SCH (22:08)
[2018-03-06] MEDS: METOCLOPRAMIDE 5 MG TABLET PO SCH (22:10)
[2018-03-06] MEDS: PRAVASTATIN 20 MG TABLET PO SCH (22:10)
[2018-03-07] MEDS: ALBUTEROL/IPRATROPIUM 3 ML NEB RESP TX SCH ×7 (04:06→23:59)
[2018-03-07] MEDS: SODIUM BICARBONATE 650 MG TABLET PO SCH ×2 (08:32→20:51)
[2018-03-07] MEDS: PANTOPRAZOLE 40 MG VIAL IV SCH ×2 (08:32→20:50)
[2018-03-07] MEDS: SUCRALFATE 1 GM/10 ML UDCUP PO SCH ×4 (08:32→20:51)
[2018-03-07] MEDS: predniSONE 10 MG TABLET PO SCH (08:33)
[2018-03-07] MEDS: MAGNESIUM OXIDE 400 MG TABLET PO SCH ×2 (08:33→20:51)
[2018-03-07] MEDS: METOCLOPRAMIDE 5 MG TABLET PO SCH ×2 (08:33→20:51)
[2018-03-07] MEDS: ALLOPURINOL 100 MG TABLET PO SCH (08:35)
[2018-03-07] MEDS: PROPRANOLOL 20 MG TABLET PO SCH ×2 (08:35→20:52)
[2018-03-07 09:39] LABS: Hematocrit 26.8 VOL% (42.0-52.0); Hemoglobin 8.4 GM/DL (14.0-18.0); Immature Granulocytes % 1.8 %; Immature Granulocytes Absolute 0.11 #; Lymphocytes # 1.1 10*3/uL (1.4-4.0); Lymphocytes % 17.2 % (21.2-54.2); Mean Corpuscular HGB Conc 31.3 GM/DL (32-36); Mean Corpuscular Hemoglobin 28 PG (27-34); Mean Corpuscular Volume 90.2 FL (87-102); Mean Platelet Volume 12.3 FL (9.6-12.0); Monocytes # 0.3 10*3/uL (0.11-0.8); Monocytes % 4.7 % (1.7-12.7); Neutrophils # 4.7 10*3/uL (1.4-7.4); Neutrophils % 76.3 % (38.7-73.9); Red Blood Count 2.97 MC/CUMM (3.8-5.5); Red Cell Distribution Width 16.1 % (9.3-17.3); White Blood Count 6.1 T/CUMM (4-12)
[2018-03-07 09:48] LABS: Platelet Count 33 T/CUMM (130-400)
[2018-03-07] MEDS: MYCOPHENOLATE 180 MG TABLET PO SCH (10:38)
[2018-03-07] MEDS: SODIUM CHLORIDE 0.9% 1,000 ML IV SCH (11:25)
[2018-03-07 12:44] LABS: Hypochromasia 2+; Microcytosis 2+; Platelet Estimate Decreased; Spherocytes 2+
[2018-03-07] MEDS: TAMSULOSIN 0.4 MG CAPSULE PO SCH (20:51)
[2018-03-07] MEDS: OXYBUTYNIN XL 5 MG TABLET PO SCH (20:51)
[2018-03-07] MEDS: PRAVASTATIN 20 MG TABLET PO SCH (20:52)
[2018-03-08] MEDS: ALBUTEROL/IPRATROPIUM 3 ML NEB RESP TX SCH ×7 (03:55→23:43)
[2018-03-08 07:02] LABS: Eosinophils % 0.2 % (0.00-10.9); Hemoglobin 7.9 GM/DL (14.0-18.0); Immature Granulocytes % 0.5 %; Immature Granulocytes Absolute 0.02 #; Lymphocytes # 0.9 10*3/uL (1.4-4.0); Lymphocytes % 19.6 % (21.2-54.2); Mean Corpuscular HGB Conc 31.6 GM/DL (32-36); Mean Corpuscular Hemoglobin 28 PG (27-34); Mean Platelet Volume 13.3 FL (9.6-12.0); Monocytes # 0.2 10*3/uL (0.11-0.8); Monocytes % 5.2 % (1.7-12.7); Neutrophils # 3.3 10*3/uL (1.4-7.4); Neutrophils % 74.5 % (38.7-73.9); Red Blood Count 2.84 MC/CUMM (3.8-5.5); Red Cell Distribution Width 15.8 % (9.3-17.3); White Blood Count 4.4 T/CUMM (4-12)
[2018-03-08 07:10] LABS: Platelet Count 25 T/CUMM (130-400)
[2018-03-08 07:28] LABS: Lymphocytes 5 % (20-55); Segmented Neutrophils 90 % (50-85); Total Cells Counted 100
[2018-03-08 07:29] LABS: Hypochromasia 1+; Platelet Estimate Decreased
[2018-03-08] MEDS: ALLOPURINOL 100 MG TABLET PO SCH (09:05)
[2018-03-08] MEDS: SUCRALFATE 1 GM/10 ML UDCUP PO SCH ×4 (09:05→20:56)
[2018-03-08] MEDS: METOCLOPRAMIDE 5 MG TABLET PO SCH ×2 (09:05→20:56)
[2018-03-08] MEDS: MYCOPHENOLATE 180 MG TABLET PO SCH (09:05)
[2018-03-08] MEDS: MAGNESIUM OXIDE 400 MG TABLET PO SCH ×2 (09:05→20:56)
[2018-03-08] MEDS: PANTOPRAZOLE 40 MG VIAL IV SCH ×2 (09:05→20:55)
[2018-03-08] MEDS: PROPRANOLOL 20 MG TABLET PO SCH ×2 (09:05→20:56)
[2018-03-08] MEDS: SODIUM BICARBONATE 650 MG TABLET PO SCH ×2 (09:05→20:56)
[2018-03-08] MEDS: predniSONE 10 MG TABLET PO SCH (09:06)
[2018-03-08 12:07] LABS: Hematocrit 25.6 VOL% (42.0-52.0); Hemoglobin 8.2 GM/DL (14.0-18.0)
[2018-03-08] MEDS: LEVOFLOXACIN 250 MG TABLET PO SCH (17:36)
[2018-03-08] MEDS: OXYBUTYNIN XL 5 MG TABLET PO SCH (20:56)
[2018-03-08] MEDS: PRAVASTATIN 20 MG TABLET PO SCH (20:56)
[2018-03-08] MEDS: TAMSULOSIN 0.4 MG CAPSULE PO SCH (20:56)
[2018-03-09] MEDS: ALBUTEROL/IPRATROPIUM 3 ML NEB RESP TX SCH ×6 (03:25→23:54)
[2018-03-09] MEDS: predniSONE 10 MG TABLET PO SCH (09:12)
[2018-03-09] MEDS: SODIUM BICARBONATE 650 MG TABLET PO SCH ×2 (09:12→21:14)
[2018-03-09] MEDS: ALLOPURINOL 100 MG TABLET PO SCH (09:12)
[2018-03-09] MEDS: MAGNESIUM OXIDE 400 MG TABLET PO SCH ×2 (09:12→21:14)
[2018-03-09] MEDS: METOCLOPRAMIDE 5 MG TABLET PO SCH ×2 (09:12→21:13)
[2018-03-09] MEDS: MYCOPHENOLATE 180 MG TABLET PO SCH (09:12)
[2018-03-09] MEDS: PANTOPRAZOLE 40 MG VIAL IV SCH ×2 (09:12→21:16)
[2018-03-09] MEDS: SUCRALFATE 1 GM/10 ML UDCUP PO SCH ×4 (09:12→21:15)
[2018-03-09] MEDS: PROPRANOLOL 20 MG TABLET PO SCH ×2 (09:13→21:15)
[2018-03-09 13:59] LABS: Basophils % 0.2 % (0.0-0.8); Hematocrit 27.1 VOL% (42.0-52.0); Hemoglobin 8.8 GM/DL (14.0-18.0); Immature Granulocytes % 0.8 %; Immature Granulocytes Absolute 0.05 #; Lymphocytes # 0.9 10*3/uL (1.4-4.0); Lymphocytes % 14.6 % (21.2-54.2); Mean Corpuscular HGB Conc 32.5 GM/DL (32-36); Mean Corpuscular Hemoglobin 29 PG (27-34); Mean Corpuscular Volume 87.7 FL (87-102); Mean Platelet Volume 14.3 FL (9.6-12.0); Monocytes # 0.3 10*3/uL (0.11-0.8); Monocytes % 4.7 % (1.7-12.7); Neutrophils # 5.1 10*3/uL (1.4-7.4); Neutrophils % 79.7 % (38.7-73.9); Red Blood Count 3.09 MC/CUMM (3.8-5.5); Red Cell Distribution Width 15.9 % (9.3-17.3); White Blood Count 6.4 T/CUMM (4-12)
[2018-03-09 14:06] LABS: Platelet Count 30 T/CUMM (130-400)
[2018-03-09 14:18] LABS: Hypochromasia 1+
[2018-03-09 14:19] LABS: Microcytosis 1+; Ovalocytes Slight
[2018-03-09 14:20] LABS: Platelet Estimate Decreased; Spherocytes 1+
[2018-03-09 14:57] LABS: Calcium 6.4 MG/DL (8.5-10.1); Osmolality,Calculated 288.7 MOS/KG (273-304); Potassium 3.8 MMOL/L (3.5-5.1)
[2018-03-09] MEDS: TAMSULOSIN 0.4 MG CAPSULE PO SCH (21:13)
[2018-03-09] MEDS: PRAVASTATIN 20 MG TABLET PO SCH (21:14)
[2018-03-09] MEDS: OXYBUTYNIN XL 5 MG TABLET PO SCH (21:15)
[2018-03-10] MEDS: ALBUTEROL/IPRATROPIUM 3 ML NEB RESP TX SCH ×6 (03:45→23:16)
[2018-03-10 06:16] LABS: Basophils % 0.2 % (0.0-0.8); Hematocrit 25.9 VOL% (42.0-52.0); Hemoglobin 8.4 GM/DL (14.0-18.0); Immature Granulocytes % 1.2 %; Immature Granulocytes Absolute 0.07 #; Lymphocytes # 0.8 10*3/uL (1.4-4.0); Lymphocytes % 13.2 % (21.2-54.2); Mean Corpuscular HGB Conc 32.4 GM/DL (32-36); Mean Corpuscular Hemoglobin 28 PG (27-34); Mean Corpuscular Volume 86.6 FL (87-102); Mean Platelet Volume 13.7 FL (9.6-12.0); Monocytes # 0.3 10*3/uL (0.11-0.8); Monocytes % 4.2 % (1.7-12.7); Neutrophils # 4.8 10*3/uL (1.4-7.4); Neutrophils % 81.2 % (38.7-73.9); Red Blood Count 2.99 MC/CUMM (3.8-5.5); Red Cell Distribution Width 15.9 % (9.3-17.3); White Blood Count 5.9 T/CUMM (4-12)
[2018-03-10 06:26] LABS: Platelet Count 25 T/CUMM (130-400)
[2018-03-10 06:41] LABS: Calcium 6.6 MG/DL (8.5-10.1); Osmolality,Calculated 294.3 MOS/KG (273-304)
[2018-03-10 06:43] LABS: Band Neutrophils 1 % (0-10); Hypochromasia 1+; Lymphocytes 8 % (20-55); Platelet Estimate Decreased; Segmented Neutrophils 87 % (50-85); Total Cells Counted 100
[2018-03-10 06:44] LABS: Microcytosis Slight; Ovalocytes Slight
[2018-03-10] MEDS: SUCRALFATE 1 GM/10 ML UDCUP PO SCH ×5 (10:10→20:48)
[2018-03-10] MEDS: SODIUM BICARBONATE 650 MG TABLET PO SCH ×2 (10:10→20:50)
[2018-03-10] MEDS: PROPRANOLOL 20 MG TABLET PO SCH ×2 (10:11→20:49)
[2018-03-10] MEDS: MYCOPHENOLATE 180 MG TABLET PO SCH (10:11)
[2018-03-10] MEDS: METOCLOPRAMIDE 5 MG TABLET PO SCH ×2 (10:11→21:12)
[2018-03-10] MEDS: predniSONE 10 MG TABLET PO SCH (10:11)
[2018-03-10] MEDS: MAGNESIUM OXIDE 400 MG TABLET PO SCH ×2 (10:11→20:50)
[2018-03-10] MEDS: PANTOPRAZOLE 40 MG VIAL IV SCH ×2 (10:11→20:51)
[2018-03-10] MEDS: ALLOPURINOL 100 MG TABLET PO SCH (10:11)
[2018-03-10] MEDS: LEVOFLOXACIN 250 MG TABLET PO SCH (18:41)
[2018-03-10] MEDS: TAMSULOSIN 0.4 MG CAPSULE PO SCH (20:48)
[2018-03-10] MEDS: OXYBUTYNIN XL 5 MG TABLET PO SCH (20:49)
[2018-03-10] MEDS: PRAVASTATIN 20 MG TABLET PO SCH (21:12)
[2018-03-11] MEDS: ALBUTEROL/IPRATROPIUM 3 ML NEB RESP TX SCH ×2 (02:40→07:36)
[2018-03-11] MEDS: MAGNESIUM OXIDE 400 MG TABLET PO SCH (08:53)
[2018-03-11] MEDS: SODIUM BICARBONATE 650 MG TABLET PO SCH (08:53)
[2018-03-11] MEDS: SUCRALFATE 1 GM/10 ML UDCUP PO SCH ×2 (08:53→12:24)
[2018-03-11] MEDS: PANTOPRAZOLE 40 MG VIAL IV SCH (08:53)
[2018-03-11] MEDS: PROPRANOLOL 20 MG TABLET PO SCH (08:53)
[2018-03-11] MEDS: METOCLOPRAMIDE 5 MG TABLET PO SCH (08:53)
[2018-03-11] MEDS: predniSONE 10 MG TABLET PO SCH (08:54)
[2018-03-11] MEDS: MYCOPHENOLATE 180 MG TABLET PO SCH (08:54)
[2018-03-11] MEDS: ALLOPURINOL 100 MG TABLET PO SCH (08:54)
[2018-03-11 12:20] VITALS: BP 112/78
== END 2018-03-11 12:02 | disposition swing bed (61) | DRG 377 ==
LOC: N.ED 12:03 → N.EDINP 12:03 → SUATTDRO 15:19 → N.EDINP 17:50 → N.5E 17:57 → SUATTDRO 03-08 11:15
PROVIDERS: ADMIT Internal Medicine; ATTEND Internal Medicine

== ENCOUNTER 2018-04-04 13:07 | Inpatient (IN) ==
[2018-04-04] MEDS ORDERED: SODIUM CHLORIDE 0.9% 1,000 ML IV STA ×2 (13:34→15:07)
[2018-04-04] MEDS ORDERED: MEROPENEM 500 MG in SODIUM CHLORIDE 0.9% 100 ML IV STA (13:37)
[2018-04-04] MEDS ORDERED: MEROPENEM 1,000 MG VIAL IV ONE (14:00)
[2018-04-04 14:13] LABS: Basophils % 0.1 % (0.0-0.8); Hematocrit 24.8 VOL% (42.0-52.0); Hemoglobin 7.8 GM/DL (14.0-18.0); Immature Granulocytes % 0.9 %; Immature Granulocytes Absolute 0.08 #; Lymphocytes # 1.7 10*3/uL (1.4-4.0); Lymphocytes % 18.4 % (21.2-54.2); Mean Corpuscular HGB Conc 31.5 GM/DL (32-36); Mean Corpuscular Hemoglobin 28 PG (27-34); Mean Corpuscular Volume 89.9 FL (87-102); Mean Platelet Volume 12.3 FL (9.6-12.0); Monocytes # 0.7 10*3/uL (0.11-0.8); Monocytes % 7.6 % (1.7-12.7); Neutrophils # 6.7 10*3/uL (1.4-7.4); Platelet Count 51 T/CUMM (130-400); Red Blood Count 2.76 MC/CUMM (3.8-5.5); Red Cell Distribution Width 15.8 % (9.3-17.3); White Blood Count 9.1 T/CUMM (4-12)
[2018-04-04 14:22] LABS: INR 1.2; PT Patient Result 12.9 SECS
[2018-04-04 14:25] LABS: Partial Thromboplastin Time 45.6 SECS (0-40)
[2018-04-04 14:37] LABS: Alanine Aminotransferase < 6 U/L (16-61); Albumin 1.5 G/DL (3.4-5.0); Alkaline Phosphatase 71 U/L (45-117); Aspartate Amino Transferase 12 U/L (0-37); Blood Urea Nitrogen 39 MG/DL (7-18); Glucose 58 MG/DL (74-106); Potassium 4.5 MMOL/L (3.5-5.1); Sodium 136 MMOL/L (136-145); Total Protein 3.5 G/DL (6.4-8.3)
[2018-04-04 14:38] LABS: Troponin I Only 0.072 NG/ML (0.00-0.045)
[2018-04-04 14:44] LABS: Microcytosis 2+; Platelet Estimate Decreased
[2018-04-04] MEDS ORDERED: VANCOMYCIN INJ 1,000 MG in SODIUM CHLORIDE 0.9% 250 ML IV STA (15:03)
[2018-04-04 15:41] LABS: Sedimentation Rate-Westergren 20 MM/HR (0-20)
[2018-04-04] MEDS ORDERED: ACETAMINOPHEN 325 MG TABLET PO PRN (15:59)
[2018-04-04] MEDS ORDERED: ONDANSETRON 4 MG/2 ML VIAL IV PRN (15:59)
[2018-04-04] MEDS ORDERED: SODIUM CHLORIDE 0.9% 1,000 ML IV PRN (16:15)
[2018-04-04 17:40] LABS: Apearance,Urine CLEAR (Clear); Bilirubin,Urine Negative (Negative); Blood, Urine Small mg/dL (Negative); Glucose,Urine (UA) Negative (Negative); Ketones,Urine 5 mg/dL (Negative); Nitrite,Urine Negative (Negative); Protein,Urine 30 MG/DL; Urine Color Yellow (Yellow); Urine Specific Gravity 1.006 (1.001-1.035); Urine Urobilinogen < 2.0 EU/DL (0.2-1.0); WBC,Urine <1 /HPF (0-6)
[2018-04-04] MEDS: SODIUM CHLORIDE 0.45% 1,000 ML IV SCH (17:56)
[2018-04-04] MEDS: metroNIDAZOLE INJ 500 MG in PREMIX 1 EACH IV SCH (17:57)
[2018-04-04] MEDS: SODIUM BICARBONATE 650 MG TABLET PO SCH (20:24)
[2018-04-04] MEDS: TAMSULOSIN 0.4 MG CAPSULE PO SCH (20:24)
[2018-04-04] MEDS: PRAVASTATIN 20 MG TABLET PO SCH (20:25)
[2018-04-04] MEDS: OXYBUTYNIN XL 5 MG TABLET PO SCH (20:25)
[2018-04-04] MEDS: MAGNESIUM OXIDE 400 MG TABLET PO SCH (20:25)
[2018-04-04] MEDS: cycloSPORINE OPH EMUL 1 VIAL BOTH EYES SCH (20:41)
[2018-04-04] MEDS: DESITIN 4OZ/NYSTATIN 15 GRAM MIXTURE PASTE TOP SCH (22:47)
[2018-04-05] MEDS: metroNIDAZOLE INJ 500 MG in PREMIX 1 EACH IV SCH ×3 (03:08→20:44)
[2018-04-05] MEDS: SODIUM CHLORIDE 0.45% 1,000 ML IV SCH ×3 (03:12→20:44)
[2018-04-05 06:43] LABS: Basophils % 0.1 % (0.0-0.8); Hematocrit 26.3 VOL% (42.0-52.0); Hemoglobin 8.5 GM/DL (14.0-18.0); Immature Granulocytes % 0.7 %; Immature Granulocytes Absolute 0.05 #; Lymphocytes # 1.1 10*3/uL (1.4-4.0); Lymphocytes % 14.5 % (21.2-54.2); Mean Corpuscular HGB Conc 32.3 GM/DL (32-36); Mean Corpuscular Hemoglobin 29 PG (27-34); Mean Corpuscular Volume 89.5 FL (87-102); Mean Platelet Volume 11.8 FL (9.6-12.0); Monocytes # 0.3 10*3/uL (0.11-0.8); Monocytes % 4.6 % (1.7-12.7); Neutrophils # 5.8 10*3/uL (1.4-7.4); Neutrophils % 80.1 % (38.7-73.9); Red Blood Count 2.94 MC/CUMM (3.8-5.5); Red Cell Distribution Width 15.6 % (9.3-17.3); White Blood Count 7.2 T/CUMM (4-12)
[2018-04-05 06:54] LABS: Platelet Count 38 T/CUMM (130-400)
[2018-04-05 07:06] LABS: Hypochromasia Slight; Lymphocytes 9 % (20-55); Ovalocytes Slight; Platelet Estimate Decreased; Segmented Neutrophils 88 % (50-85); Total Cells Counted 100
[2018-04-05 07:07] LABS: Microcytosis 1+
[2018-04-05 07:11] LABS: Alanine Aminotransferase < 9 U/L (16-61); Albumin 1.3 G/DL (3.4-5.0); Alkaline Phosphatase 60 U/L (45-117); Aspartate Amino Transferase 18 U/L (0-37); Blood Urea Nitrogen 41 MG/DL (7-18); Calcium 6.7 MG/DL (8.5-10.1); Glucose 93 MG/DL (74-106); Osmolality,Calculated 284.7 MOS/KG (273-304); Potassium 4.1 MMOL/L (3.5-5.1); Sodium 138 MMOL/L (136-145); Total Protein 3.2 G/DL (6.4-8.3)
[2018-04-05] MEDS: PANTOPRAZOLE 40 MG TABLET PO SCH (09:36)
[2018-04-05] MEDS: MAGNESIUM OXIDE 400 MG TABLET PO SCH ×2 (09:36→20:45)
[2018-04-05] MEDS: MYCOPHENOLATE 180 MG TABLET PO SCH (09:36)
[2018-04-05] MEDS: SODIUM BICARBONATE 650 MG TABLET PO SCH ×2 (09:36→20:45)
[2018-04-05] MEDS: predniSONE 10 MG TABLET PO SCH (09:36)
[2018-04-05] MEDS: cycloSPORINE OPH EMUL 1 VIAL BOTH EYES SCH ×2 (09:39→20:45)
[2018-04-05] MEDS: DESITIN 4OZ/NYSTATIN 15 GRAM MIXTURE PASTE TOP SCH ×2 (09:39→20:45)
[2018-04-05] MEDS: VANCOMYCIN 50 MG/ML 60 ML/BOTTLE PO SCH ×3 (11:38→23:59)
[2018-04-05] MEDS: OXYBUTYNIN XL 5 MG TABLET PO SCH (20:45)
[2018-04-05] MEDS: PRAVASTATIN 20 MG TABLET PO SCH (20:45)
[2018-04-05] MEDS: TAMSULOSIN 0.4 MG CAPSULE PO SCH (20:45)
[2018-04-06] MEDS: SODIUM CHLORIDE 0.45% 1,000 ML IV SCH ×4 (04:55→20:59)
[2018-04-06] MEDS: metroNIDAZOLE INJ 500 MG in PREMIX 1 EACH IV SCH (04:56)
[2018-04-06] MEDS: VANCOMYCIN 50 MG/ML 60 ML/BOTTLE PO SCH ×4 (05:00→23:13)
[2018-04-06 05:32] LABS: Hematocrit 26.3 VOL% (42.0-52.0); Hemoglobin 8.5 GM/DL (14.0-18.0); Immature Granulocytes % 1.1 %; Immature Granulocytes Absolute 0.06 #; Lymphocytes # 0.8 10*3/uL (1.4-4.0); Mean Corpuscular HGB Conc 32.3 GM/DL (32-36); Mean Corpuscular Hemoglobin 28 PG (27-34); Mean Platelet Volume 13.6 FL (9.6-12.0); Monocytes # 0.3 10*3/uL (0.11-0.8); Monocytes % 5.2 % (1.7-12.7); Neutrophils # 4.3 10*3/uL (1.4-7.4); Neutrophils % 79.7 % (38.7-73.9); Red Blood Count 2.99 MC/CUMM (3.8-5.5); Red Cell Distribution Width 15.6 % (9.3-17.3); White Blood Count 5.4 T/CUMM (4-12)
[2018-04-06 05:42] LABS: Platelet Count 29 T/CUMM (130-400)
[2018-04-06 05:59] LABS: Calcium 6.7 MG/DL (8.5-10.1); Potassium 3.8 MMOL/L (3.5-5.1)
[2018-04-06 06:08] LABS: Acanthocytes Few; Microcytosis 1+; Ovalocytes Slight
[2018-04-06 06:09] LABS: Hypochromasia Slight; Platelet Estimate Decreased
[2018-04-06] MEDS: MAGNESIUM OXIDE 400 MG TABLET PO SCH ×2 (09:31→21:02)
[2018-04-06] MEDS: predniSONE 10 MG TABLET PO SCH (09:31)
[2018-04-06] MEDS: PANTOPRAZOLE 40 MG TABLET PO SCH (09:31)
[2018-04-06] MEDS: SODIUM BICARBONATE 650 MG TABLET PO SCH ×2 (09:31→21:01)
[2018-04-06] MEDS: MYCOPHENOLATE 180 MG TABLET PO SCH (09:31)
[2018-04-06] MEDS: DESITIN 4OZ/NYSTATIN 15 GRAM MIXTURE PASTE TOP SCH ×2 (09:32→21:03)
[2018-04-06] MEDS: cycloSPORINE OPH EMUL 1 VIAL BOTH EYES SCH ×2 (09:32→21:09)
[2018-04-06] MEDS: TAMSULOSIN 0.4 MG CAPSULE PO SCH (21:01)
[2018-04-06] MEDS: OXYBUTYNIN XL 5 MG TABLET PO SCH (21:01)
[2018-04-06] MEDS: PROPRANOLOL 20 MG TABLET PO SCH (21:02)
[2018-04-06] MEDS: PRAVASTATIN 20 MG TABLET PO SCH (21:02)
[2018-04-07] MEDS: SODIUM CHLORIDE 0.45% 1,000 ML IV SCH ×3 (04:15→20:46)
[2018-04-07] MEDS: VANCOMYCIN 50 MG/ML 60 ML/BOTTLE PO SCH ×4 (05:37→23:38)
[2018-04-07 06:32] LABS: Hematocrit 26.8 VOL% (42.0-52.0); Immature Granulocytes % 0.7 %; Immature Granulocytes Absolute 0.04 #; Lymphocytes # 0.8 10*3/uL (1.4-4.0); Lymphocytes % 15.4 % (21.2-54.2); Mean Corpuscular HGB Conc 33.6 GM/DL (32-36); Mean Corpuscular Hemoglobin 29 PG (27-34); Mean Corpuscular Volume 86.2 FL (87-102); Mean Platelet Volume 14.8 FL (9.6-12.0); Monocytes # 0.3 10*3/uL (0.11-0.8); Monocytes % 6.2 % (1.7-12.7); Neutrophils # 4.2 10*3/uL (1.4-7.4); Neutrophils % 77.7 % (38.7-73.9); Red Blood Count 3.11 MC/CUMM (3.8-5.5); Red Cell Distribution Width 15.7 % (9.3-17.3); White Blood Count 5.3 T/CUMM (4-12)
[2018-04-07 06:36] LABS: Platelet Count 26 T/CUMM (130-400)
[2018-04-07 06:51] LABS: Calcium 6.6 MG/DL (8.5-10.1); Osmolality,Calculated 279.8 MOS/KG (273-304); Potassium 3.7 MMOL/L (3.5-5.1)
[2018-04-07 06:54] LABS: Burr Cells Slight; Hypochromasia Slight; Ovalocytes Slight; Platelet Estimate Decreased
[2018-04-07 06:55] LABS: Microcytosis 1+
[2018-04-07] MEDS: MAGNESIUM OXIDE 400 MG TABLET PO SCH ×2 (09:46→20:47)
[2018-04-07] MEDS: SODIUM BICARBONATE 650 MG TABLET PO SCH ×2 (09:46→20:47)
[2018-04-07] MEDS: MYCOPHENOLATE 180 MG TABLET PO SCH (09:46)
[2018-04-07] MEDS: PANTOPRAZOLE 40 MG TABLET PO SCH (09:47)
[2018-04-07] MEDS: predniSONE 10 MG TABLET PO SCH (09:47)
[2018-04-07] MEDS: PROPRANOLOL 20 MG TABLET PO SCH ×2 (09:47→20:47)
[2018-04-07] MEDS: cycloSPORINE OPH EMUL 1 VIAL BOTH EYES SCH ×2 (14:14→20:47)
[2018-04-07] MEDS: DESITIN 4OZ/NYSTATIN 15 GRAM MIXTURE PASTE TOP SCH ×2 (17:49→20:48)
[2018-04-07] MEDS: OXYBUTYNIN XL 5 MG TABLET PO SCH (20:46)
[2018-04-07] MEDS: TAMSULOSIN 0.4 MG CAPSULE PO SCH (20:47)
[2018-04-07] MEDS: PRAVASTATIN 20 MG TABLET PO SCH (20:47)
[2018-04-08] MEDS: SODIUM CHLORIDE 0.45% 1,000 ML IV SCH ×3 (05:10→22:24)
[2018-04-08] MEDS: VANCOMYCIN 50 MG/ML 60 ML/BOTTLE PO SCH ×4 (05:40→23:30)
[2018-04-08 06:28] LABS: Hematocrit 29.1 VOL% (42.0-52.0); Hemoglobin 9.8 GM/DL (14.0-18.0); Immature Granulocytes % 0.8 %; Immature Granulocytes Absolute 0.05 #; Lymphocytes # 0.8 10*3/uL (1.4-4.0); Lymphocytes % 14.2 % (21.2-54.2); Mean Corpuscular HGB Conc 33.7 GM/DL (32-36); Mean Corpuscular Hemoglobin 29 PG (27-34); Mean Corpuscular Volume 86.4 FL (87-102); Mean Platelet Volume 14.5 FL (9.6-12.0); Monocytes # 0.4 10*3/uL (0.11-0.8); Monocytes % 6.4 % (1.7-12.7); Neutrophils # 4.7 10*3/uL (1.4-7.4); Neutrophils % 78.6 % (38.7-73.9); Red Blood Count 3.37 MC/CUMM (3.8-5.5); Red Cell Distribution Width 15.7 % (9.3-17.3); White Blood Count 5.9 T/CUMM (4-12)
[2018-04-08 06:31] LABS: Platelet Count 26 T/CUMM (130-400)
[2018-04-08 06:37] LABS: Calcium 6.7 MG/DL (8.5-10.1)
[2018-04-08 07:06] LABS: Burr Cells Slight; Hypochromasia Slight; Microcytosis Slight; Ovalocytes Slight; Platelet Estimate Decreased
[2018-04-08] MEDS: SODIUM BICARBONATE 650 MG TABLET PO SCH ×2 (08:54→22:28)
[2018-04-08] MEDS: PANTOPRAZOLE 40 MG TABLET PO SCH (08:54)
[2018-04-08] MEDS: MYCOPHENOLATE 180 MG TABLET PO SCH (08:54)
[2018-04-08] MEDS: predniSONE 10 MG TABLET PO SCH (08:54)
[2018-04-08] MEDS: MAGNESIUM OXIDE 400 MG TABLET PO SCH ×2 (08:54→22:22)
[2018-04-08] MEDS: PROPRANOLOL 20 MG TABLET PO SCH ×2 (08:54→22:23)
[2018-04-08] MEDS: cycloSPORINE OPH EMUL 1 VIAL BOTH EYES SCH ×2 (08:55→22:29)
[2018-04-08] MEDS: DESITIN 4OZ/NYSTATIN 15 GRAM MIXTURE PASTE TOP SCH ×2 (08:55→22:28)
[2018-04-08] MEDS: PRAVASTATIN 20 MG TABLET PO SCH (22:23)
[2018-04-08] MEDS: TAMSULOSIN 0.4 MG CAPSULE PO SCH (22:23)
[2018-04-08] MEDS: OXYBUTYNIN XL 5 MG TABLET PO SCH (22:23)
[2018-04-09] MEDS: SODIUM CHLORIDE 0.45% 1,000 ML IV SCH ×2 (03:34→11:19)
[2018-04-09] MEDS: VANCOMYCIN 50 MG/ML 60 ML/BOTTLE PO SCH ×2 (05:51→13:15)
[2018-04-09 06:50] LABS: Hematocrit 30.3 VOL% (42.0-52.0); Hemoglobin 9.7 GM/DL (14.0-18.0); Immature Granulocytes % 0.6 %; Immature Granulocytes Absolute 0.04 #; Lymphocytes # 0.9 10*3/uL (1.4-4.0); Lymphocytes % 12.2 % (21.2-54.2); Mean Corpuscular Hemoglobin 28 PG (27-34); Mean Corpuscular Volume 88.6 FL (87-102); Monocytes # 0.4 10*3/uL (0.11-0.8); Monocytes % 5.7 % (1.7-12.7); Neutrophils # 5.9 10*3/uL (1.4-7.4); Neutrophils % 81.5 % (38.7-73.9); Red Blood Count 3.42 MC/CUMM (3.8-5.5); Red Cell Distribution Width 15.8 % (9.3-17.3); White Blood Count 7.2 T/CUMM (4-12)
[2018-04-09 06:54] LABS: Platelet Count 28 T/CUMM (130-400)
[2018-04-09 07:09] LABS: Calcium 6.8 MG/DL (8.5-10.1)
[2018-04-09 07:25] LABS: Lymphocytes 9 % (20-55); Segmented Neutrophils 89 % (50-85); Total Cells Counted 100
[2018-04-09 07:26] LABS: Hypochromasia 1+; Microcytosis Slight; Ovalocytes Slight; Platelet Estimate Decreased
[2018-04-09] MEDS: SODIUM BICARBONATE 650 MG TABLET PO SCH (09:05)
[2018-04-09] MEDS: predniSONE 10 MG TABLET PO SCH (09:05)
[2018-04-09] MEDS: PANTOPRAZOLE 40 MG TABLET PO SCH (09:05)
[2018-04-09] MEDS: MAGNESIUM OXIDE 400 MG TABLET PO SCH (09:06)
[2018-04-09] MEDS: DESITIN 4OZ/NYSTATIN 15 GRAM MIXTURE PASTE TOP SCH (09:06)
[2018-04-09] MEDS: MYCOPHENOLATE 180 MG TABLET PO SCH (09:06)
[2018-04-09] MEDS: PROPRANOLOL 20 MG TABLET PO SCH (09:06)
[2018-04-09] MEDS: cycloSPORINE OPH EMUL 1 VIAL BOTH EYES SCH (09:07)
[2018-04-09 12:09] VITALS: BP 135/81
== END 2018-04-09 14:30 | disposition swing bed (61) | DRG 372 ==
LOC: N.ED 13:07 → N.EDINP 15:42 → N.5E 17:32

== ENCOUNTER 2018-07-02 23:46 | Inpatient (IN) ==
[2018-07-03] MEDS ORDERED: ONDANSETRON 4 MG/2 ML VIAL IV STA (00:12)
[2018-07-03] MEDS ORDERED: SODIUM CHLORIDE 0.9% 1,000 ML IV STA (00:12)
[2018-07-03] MEDS ORDERED: PANTOPRAZOLE 40 MG VIAL IV STA (00:12)
[2018-07-03 00:29] LABS: Basophils % 0.1 % (0.0-0.8); Hematocrit 32.3 VOL% (42.0-52.0); Hemoglobin 10.3 GM/DL (14.0-18.0); Immature Granulocytes % 0.4 %; Immature Granulocytes Absolute 0.03 #; Lymphocytes % 28.1 % (21.2-54.2); Mean Corpuscular HGB Conc 31.9 GM/DL (32-36); Mean Corpuscular Hemoglobin 29 PG (27-34); Mean Corpuscular Volume 91.2 FL (87-102); Mean Platelet Volume 13.9 FL (9.6-12.0); Monocytes # 0.4 10*3/uL (0.11-0.8); Monocytes % 5.4 % (1.7-12.7); Neutrophils # 4.6 10*3/uL (1.4-7.4); Red Blood Count 3.54 MC/CUMM (3.8-5.5); Red Cell Distribution Width 16.1 % (9.3-17.3)
[2018-07-03 00:32] LABS: Platelet Count 34 T/CUMM (130-400)
[2018-07-03 00:40] LABS: PT Patient Result 10.8 SECS; Partial Thromboplastin Time 33.7 SECS (0-40)
[2018-07-03 00:52] LABS: Alanine Aminotransferase < 9 U/L (16-61); Alkaline Phosphatase 78 U/L (45-117); Aspartate Amino Transferase 10 U/L (0-37); Blood Urea Nitrogen 75 MG/DL (7-18); Glucose 72 MG/DL (74-106); Osmolality,Calculated 290.1 MOS/KG (273-304); Potassium 5.2 MMOL/L (3.5-5.1); Sodium 135 MMOL/L (136-145); Total Protein 4.1 G/DL (6.4-8.3); Troponin I 0.021 NG/ML (0.00-0.045)
[2018-07-03] MEDS ORDERED: MORPHINE 4 MG/1 ML VIAL IV PRN (01:24)
[2018-07-03] MEDS: SODIUM CHLORIDE 0.9% 1,000 ML IV SCH ×3 (03:22→17:59)
[2018-07-03] MEDS ORDERED: SODIUM CHLORIDE 0.9% 1,000 ML IV PRN ×2 (04:13→18:27)
[2018-07-03 06:24] LABS: Hematocrit 29.7 VOL% (42.0-52.0); Hemoglobin 9.3 GM/DL (14.0-18.0)
[2018-07-03 06:26] LABS: Basophils % 0.2 % (0.0-0.8); Hematocrit 29.9 VOL% (42.0-52.0); Hemoglobin 9.3 GM/DL (14.0-18.0); Immature Granulocytes % 0.5 %; Immature Granulocytes Absolute 0.02 #; Lymphocytes # 0.6 10*3/uL (1.4-4.0); Lymphocytes % 13.2 % (21.2-54.2); Mean Corpuscular HGB Conc 31.1 GM/DL (32-36); Mean Corpuscular Hemoglobin 29 PG (27-34); Mean Corpuscular Volume 92.6 FL (87-102); Mean Platelet Volume 13.3 FL (9.6-12.0); Neutrophils # 3.5 10*3/uL (1.4-7.4); Neutrophils % 85.1 % (38.7-73.9); Red Blood Count 3.23 MC/CUMM (3.8-5.5); Red Cell Distribution Width 15.9 % (9.3-17.3); White Blood Count 4.2 T/CUMM (4-12)
[2018-07-03 06:28] LABS: Platelet Count 29 T/CUMM (130-400)
[2018-07-03 06:56] LABS: Alanine Aminotransferase < 6 U/L (16-61); Albumin 1.8 G/DL (3.4-5.0); Alkaline Phosphatase 66 U/L (45-117); Aspartate Amino Transferase 11 U/L (0-37); Blood Urea Nitrogen 73 MG/DL (7-18); Calcium 6.4 MG/DL (8.5-10.1); Glucose 58 MG/DL (74-106); Osmolality,Calculated 294.7 MOS/KG (273-304); Potassium 4.9 MMOL/L (3.5-5.1); Sodium 138 MMOL/L (136-145); Total Protein 3.7 G/DL (6.4-8.3)
[2018-07-03] MEDS ORDERED: DEXTROSE 50% 25 GM/50 ML VIAL IV PRN (07:05)
[2018-07-03 07:12] LABS: Band Neutrophils 2 % (0-10); Lymphocytes 11 % (20-55); Segmented Neutrophils 86 % (50-85); Total Cells Counted 100
[2018-07-03 07:13] LABS: Hypochromasia 1+; Microcytosis Slight; Ovalocytes Slight; Platelet Estimate Decreased
[2018-07-03] MEDS ORDERED: predniSONE 10 MG TABLET PO SCH (09:00)
[2018-07-03] MEDS ORDERED: MIDAZOLAM 2 MG/2 ML VIAL ONE ×2 (09:00→11:50)
[2018-07-03] MEDS ORDERED: PHENYLEPHRINE 1 MG/10 ML SYRINGE IV ONE (09:00)
[2018-07-03] MEDS ORDERED: predniSONE 20 MG TABLET PO SCH (10:30)
[2018-07-03] MEDS: PANTOPRAZOLE 40 MG VIAL IV SCH ×2 (12:54→20:42)
[2018-07-03] MEDS ORDERED: cefTRIAXone 1,000 MG in SYRINGE 1 EACH IV SCH (13:00)
[2018-07-03] MEDS ORDERED: SODIUM CHLORIDE 0.9% 500 ML IV ONE (14:18)
[2018-07-03 16:04] LABS: Hematocrit 24.2 VOL% (42.0-52.0); Hematocrit 24.6 VOL% (42.0-52.0); Hemoglobin 7.7 GM/DL (14.0-18.0); Hemoglobin 7.8 GM/DL (14.0-18.0); Immature Granulocytes % 0.8 %; Immature Granulocytes Absolute 0.03 #; Lymphocytes # 0.8 10*3/uL (1.4-4.0); Lymphocytes % 22.7 % (21.2-54.2); Mean Corpuscular HGB Conc 31.8 GM/DL (32-36); Mean Corpuscular Hemoglobin 29 PG (27-34); Mean Corpuscular Volume 91.3 FL (87-102); Mean Platelet Volume 11.6 FL (9.6-12.0); Monocytes # 0.3 10*3/uL (0.11-0.8); Neutrophils # 2.5 10*3/uL (1.4-7.4); Neutrophils % 68.5 % (38.7-73.9); Red Blood Count 2.65 MC/CUMM (3.8-5.5); Red Cell Distribution Width 16.2 % (9.3-17.3); White Blood Count 3.6 T/CUMM (4-12)
[2018-07-03] MEDS: MYCOPHENOLATE 180 MG TABLET PO SCH (16:08)
[2018-07-03] MEDS: NYSTATIN 500,000 UNIT/5 ML UDCUP SWISH/SWAL SCH ×3 (16:08→20:41)
[2018-07-03] MEDS ORDERED: SODIUM CHLORIDE 0.9% 1,000 ML IV ONE (16:33)
[2018-07-03] MEDS ORDERED: methylPREDNISolone SOD SUC 125 MG/2 ML VIAL IV ONE (16:53)
[2018-07-03] MEDS: ACETAMINOPHEN 325 MG TABLET PO PRN (17:01)
[2018-07-03 17:03] LABS: Platelet Count 45 T/CUMM (130-400)
[2018-07-03 17:51] LABS: Hematocrit 22.4 VOL% (42.0-52.0); Hemoglobin 6.9 GM/DL (14.0-18.0); Immature Granulocytes % 0.6 %; Immature Granulocytes Absolute 0.02 #; Lymphocytes # 0.9 10*3/uL (1.4-4.0); Lymphocytes % 25.9 % (21.2-54.2); Mean Corpuscular HGB Conc 30.8 GM/DL (32-36); Mean Corpuscular Hemoglobin 29 PG (27-34); Mean Corpuscular Volume 93.3 FL (87-102); Mean Platelet Volume 12.4 FL (9.6-12.0); Monocytes # 0.2 10*3/uL (0.11-0.8); Monocytes % 6.7 % (1.7-12.7); Neutrophils # 2.3 10*3/uL (1.4-7.4); Neutrophils % 66.8 % (38.7-73.9); Red Cell Distribution Width 16.1 % (9.3-17.3); White Blood Count 3.4 T/CUMM (4-12)
[2018-07-03] MEDS: PIPERACILLIN/TAZOBACTAM 3,375 MG in SODIUM CHLORIDE 0.9% 100 ML IV SCH (18:00)
[2018-07-03 18:01] LABS: Platelet Count 39 T/CUMM (130-400)
[2018-07-03 18:04] LABS: Alanine Aminotransferase < 6 U/L (16-61); Albumin 1.4 G/DL (3.4-5.0); Alkaline Phosphatase 53 U/L (45-117); Aspartate Amino Transferase 11 U/L (0-37); Blood Urea Nitrogen 70 MG/DL (7-18); Glucose 73 MG/DL (74-106); Osmolality,Calculated 294.7 MOS/KG (273-304); Potassium 4.4 MMOL/L (3.5-5.1); Sodium 138 MMOL/L (136-145)
[2018-07-03] MEDS ORDERED: FAMOTIDINE INJ 40 MG in SODIUM CHLORIDE 0.9% 100 ML IV SCH (18:30)
[2018-07-03] MEDS: FAMOTIDINE 20 MG/2 ML VIAL IV SCH (18:39)
[2018-07-03 20:03] LABS: Hematocrit 23.3 VOL% (42.0-52.0); Hemoglobin 7.1 GM/DL (14.0-18.0); Immature Granulocytes % 0.9 %; Immature Granulocytes Absolute 0.03 #; Lymphocytes # 0.6 10*3/uL (1.4-4.0); Lymphocytes % 17.2 % (21.2-54.2); Mean Corpuscular HGB Conc 30.5 GM/DL (32-36); Mean Corpuscular Hemoglobin 29 PG (27-34); Mean Corpuscular Volume 94.3 FL (87-102); Mean Platelet Volume 11.9 FL (9.6-12.0); Monocytes # 0.2 10*3/uL (0.11-0.8); Neutrophils # 2.5 10*3/uL (1.4-7.4); Neutrophils % 76.9 % (38.7-73.9); Red Blood Count 2.47 MC/CUMM (3.8-5.5); Red Cell Distribution Width 16.2 % (9.3-17.3); White Blood Count 3.2 T/CUMM (4-12)
[2018-07-03 20:04] LABS: Platelet Count 41 T/CUMM (130-400)
[2018-07-03] MEDS: METOCLOPRAMIDE 5 MG TABLET PO SCH (20:42)
[2018-07-03] MEDS: MAGNESIUM OXIDE 400 MG TABLET PO SCH (20:42)
[2018-07-03] MEDS: SODIUM BICARBONATE 650 MG TABLET PO SCH (20:42)
[2018-07-03] MEDS: OXYBUTYNIN XL 5 MG TABLET PO SCH (20:42)
[2018-07-03] MEDS: CIPROFLOXACIN 0.3% OPH SOLN 2.5 ML BOTTLE RIGHT EYE SCH (21:59)
[2018-07-03] MEDS: cycloSPORINE OPH EMUL 1 VIAL BOTH EYES SCH (22:00)
[2018-07-04] MEDS: PIPERACILLIN/TAZOBACTAM 3,375 MG in SODIUM CHLORIDE 0.9% 100 ML IV SCH ×2 (06:11→19:00)
[2018-07-04] MEDS: FAMOTIDINE 20 MG/2 ML VIAL IV SCH ×2 (06:12→19:03)
[2018-07-04] MEDS: SODIUM CHLORIDE 0.9% 1,000 ML IV SCH ×3 (06:13→16:46)
[2018-07-04 06:21] LABS: Hematocrit 29.8 VOL% (42.0-52.0); Hemoglobin 9.5 GM/DL (14.0-18.0); Immature Granulocytes % 0.6 %; Immature Granulocytes Absolute 0.03 #; Lymphocytes # 0.6 10*3/uL (1.4-4.0); Lymphocytes % 11.5 % (21.2-54.2); Mean Corpuscular HGB Conc 31.9 GM/DL (32-36); Mean Corpuscular Hemoglobin 29 PG (27-34); Mean Corpuscular Volume 91.1 FL (87-102); Mean Platelet Volume 10.6 FL (9.6-12.0); Monocytes # 0.1 10*3/uL (0.11-0.8); Monocytes % 1.7 % (1.7-12.7); Neutrophils # 4.1 10*3/uL (1.4-7.4); Neutrophils % 86.2 % (38.7-73.9); Red Blood Count 3.27 MC/CUMM (3.8-5.5); Red Cell Distribution Width 16.2 % (9.3-17.3); White Blood Count 4.8 T/CUMM (4-12)
[2018-07-04 06:26] LABS: Platelet Count 75 T/CUMM (130-400)
[2018-07-04 06:48] LABS: Band Neutrophils 4 % (0-10); Lymphocytes 6 % (20-55); Microcytosis 1+; Segmented Neutrophils 89 % (50-85); Total Cells Counted 100
[2018-07-04 06:49] LABS: Ovalocytes Slight; Platelet Estimate Decreased
[2018-07-04] MEDS: cycloSPORINE OPH EMUL 1 VIAL BOTH EYES SCH ×3 (08:39→21:43)
[2018-07-04] MEDS: NYSTATIN 500,000 UNIT/5 ML UDCUP SWISH/SWAL SCH ×4 (08:39→21:43)
[2018-07-04] MEDS: SODIUM BICARBONATE 650 MG TABLET PO SCH ×2 (08:39→21:42)
[2018-07-04] MEDS: METOCLOPRAMIDE 5 MG TABLET PO SCH ×2 (08:39→21:43)
[2018-07-04] MEDS: CIPROFLOXACIN 0.3% OPH SOLN 2.5 ML BOTTLE RIGHT EYE SCH ×5 (08:39→21:43)
[2018-07-04] MEDS: MYCOPHENOLATE 180 MG TABLET PO SCH (08:39)
[2018-07-04] MEDS: MAGNESIUM OXIDE 400 MG TABLET PO SCH ×2 (08:39→21:43)
[2018-07-04] MEDS: PANTOPRAZOLE 40 MG VIAL IV SCH ×2 (08:39→21:43)
[2018-07-04] MEDS: predniSONE 20 MG TABLET PO SCH (08:55)
[2018-07-04] MEDS: TAMSULOSIN 0.4 MG CAPSULE PO SCH (21:43)
[2018-07-04] MEDS: OXYBUTYNIN XL 5 MG TABLET PO SCH (21:43)
[2018-07-05] MEDS: PIPERACILLIN/TAZOBACTAM 3,375 MG in SODIUM CHLORIDE 0.9% 100 ML IV SCH (05:20)
[2018-07-05] MEDS: FAMOTIDINE 20 MG/2 ML VIAL IV SCH ×2 (05:21→07:01)
[2018-07-05] MEDS: SODIUM CHLORIDE 0.9% 1,000 ML IV SCH ×3 (08:54→23:28)
[2018-07-05] MEDS: predniSONE 20 MG TABLET PO SCH (08:57)
[2018-07-05] MEDS: METOCLOPRAMIDE 5 MG TABLET PO SCH ×2 (08:57→22:59)
[2018-07-05] MEDS: SODIUM BICARBONATE 650 MG TABLET PO SCH ×2 (08:57→22:58)
[2018-07-05] MEDS: PANTOPRAZOLE 40 MG VIAL IV SCH (08:57)
[2018-07-05] MEDS: MYCOPHENOLATE 180 MG TABLET PO SCH (08:57)
[2018-07-05] MEDS: NYSTATIN 500,000 UNIT/5 ML UDCUP SWISH/SWAL SCH ×4 (08:57→22:58)
[2018-07-05] MEDS: MAGNESIUM OXIDE 400 MG TABLET PO SCH ×2 (08:57→22:58)
[2018-07-05] MEDS: CIPROFLOXACIN 0.3% OPH SOLN 2.5 ML BOTTLE RIGHT EYE SCH ×4 (08:59→22:57)
[2018-07-05] MEDS: cycloSPORINE OPH EMUL 1 VIAL BOTH EYES SCH ×2 (08:59→22:57)
[2018-07-05] MEDS: ALLOPURINOL 100 MG TABLET PO SCH (13:00)
[2018-07-05] MEDS: ZINC SULFATE 220 MG CAPSULE PO SCH (13:00)
[2018-07-05] MEDS: MEGESTROL 400 MG/10 ML UDCUP PO SCH (13:00)
[2018-07-05] MEDS: cefTRIAXone 1,000 MG in SYRINGE 1 EACH IV SCH (16:29)
[2018-07-05 19:08] LABS: Hematocrit 28.9 VOL% (42.0-52.0); Hemoglobin 9.2 GM/DL (14.0-18.0)
[2018-07-05] MEDS: OXYBUTYNIN XL 5 MG TABLET PO SCH (22:58)
[2018-07-05] MEDS: PANTOPRAZOLE 40 MG TABLET PO SCH (22:58)
[2018-07-05] MEDS: TAMSULOSIN 0.4 MG CAPSULE PO SCH (22:59)
[2018-07-06 01:45] LABS: Hemoglobin 9.3 GM/DL (14.0-18.0); Immature Granulocytes % 0.4 %; Immature Granulocytes Absolute 0.02 #; Lymphocytes # 0.6 10*3/uL (1.4-4.0); Lymphocytes % 10.4 % (21.2-54.2); Mean Corpuscular HGB Conc 33.2 GM/DL (32-36); Mean Corpuscular Hemoglobin 29 PG (27-34); Mean Corpuscular Volume 88.6 FL (87-102); Monocytes # 0.2 10*3/uL (0.11-0.8); Monocytes % 3.3 % (1.7-12.7); Neutrophils # 4.6 10*3/uL (1.4-7.4); Neutrophils % 85.9 % (38.7-73.9); Red Blood Count 3.16 MC/CUMM (3.8-5.5); Red Cell Distribution Width 16.4 % (9.3-17.3); White Blood Count 5.4 T/CUMM (4-12)
[2018-07-06 01:50] LABS: Platelet Count 31 T/CUMM (130-400)
[2018-07-06 01:53] LABS: INR 1.1; PT Patient Result 11.2 SECS; Partial Thromboplastin Time 39.4 SECS (0-40)
[2018-07-06 02:08] LABS: Calcium 6.4 MG/DL (8.5-10.1); Osmolality,Calculated 297.5 MOS/KG (273-304); Potassium 4.5 MMOL/L (3.5-5.1)
[2018-07-06 02:28] LABS: Platelet Estimate Decreased
[2018-07-06 02:29] LABS: Ovalocytes 2+
[2018-07-06 07:06] LABS: Hematocrit 28.2 VOL% (42.0-52.0); Hemoglobin 9.3 GM/DL (14.0-18.0)
[2018-07-06] MEDS ORDERED: SODIUM CHLORIDE 0.9% 1,000 ML IV PRN (08:03)
[2018-07-06] MEDS: NYSTATIN 500,000 UNIT/5 ML UDCUP SWISH/SWAL SCH ×4 (09:00→20:23)
[2018-07-06] MEDS: CIPROFLOXACIN 0.3% OPH SOLN 2.5 ML BOTTLE RIGHT EYE SCH ×4 (09:00→20:24)
[2018-07-06 13:03] LABS: Hematocrit 27.5 VOL% (42.0-52.0); Hemoglobin 8.9 GM/DL (14.0-18.0)
[2018-07-06] MEDS: ALLOPURINOL 100 MG TABLET PO SCH (13:24)
[2018-07-06] MEDS: METOCLOPRAMIDE 5 MG TABLET PO SCH ×2 (13:24→20:23)
[2018-07-06] MEDS: MAGNESIUM OXIDE 400 MG TABLET PO SCH ×2 (13:24→20:23)
[2018-07-06] MEDS: MEGESTROL 400 MG/10 ML UDCUP PO SCH (13:25)
[2018-07-06] MEDS: ZINC SULFATE 220 MG CAPSULE PO SCH (13:25)
[2018-07-06] MEDS: predniSONE 10 MG TABLET PO SCH (13:25)
[2018-07-06] MEDS: SODIUM BICARBONATE 650 MG TABLET PO SCH ×2 (13:25→20:23)
[2018-07-06] MEDS: MYCOPHENOLATE 180 MG TABLET PO SCH (13:25)
[2018-07-06] MEDS: PANTOPRAZOLE 40 MG TABLET PO SCH ×2 (13:25→20:23)
[2018-07-06] MEDS: cycloSPORINE OPH EMUL 1 VIAL BOTH EYES SCH ×2 (13:26→20:24)
[2018-07-06 15:57] LABS: Glucose,Pleural Fluid 92 MG/DL; LDH,Pleural Fluid 64 U/L; Total Protein,Pleural Fluid 1.2 G/DL
[2018-07-06] MEDS: cefTRIAXone 1,000 MG in SYRINGE 1 EACH IV SCH (16:12)
[2018-07-06 17:01] LABS: Lymphocytes,Pleural Fluid 91 %; Neutrophils,Pleural Fluid 9 %
[2018-07-06 17:05] LABS: RBC,Pleural Fluid < 1 T/CUMM
[2018-07-06] MEDS: OXYBUTYNIN XL 5 MG TABLET PO SCH (20:23)
[2018-07-06] MEDS: TAMSULOSIN 0.4 MG CAPSULE PO SCH (20:23)
[2018-07-06] MEDS: SODIUM CHLORIDE 0.9% 1,000 ML IV SCH (20:29)
[2018-07-07 02:15] LABS: Calcium 6.4 MG/DL (8.5-10.1); Osmolality,Calculated 295.4 MOS/KG (273-304); Potassium 4.2 MMOL/L (3.5-5.1)
[2018-07-07 02:34] LABS: Basophils % 0.2 % (0.0-0.8); Hematocrit 28.6 VOL% (42.0-52.0); Hemoglobin 9.4 GM/DL (14.0-18.0); Immature Granulocytes % 0.4 %; Immature Granulocytes Absolute 0.02 #; Lymphocytes # 0.6 10*3/uL (1.4-4.0); Lymphocytes % 12.6 % (21.2-54.2); Mean Corpuscular HGB Conc 32.9 GM/DL (32-36); Mean Corpuscular Hemoglobin 29 PG (27-34); Mean Platelet Volume 12.5 FL (9.6-12.0); Monocytes # 0.2 10*3/uL (0.11-0.8); Neutrophils # 3.7 10*3/uL (1.4-7.4); Neutrophils % 82.8 % (38.7-73.9); Red Blood Count 3.25 MC/CUMM (3.8-5.5); Red Cell Distribution Width 16.3 % (9.3-17.3); White Blood Count 4.5 T/CUMM (4-12)
[2018-07-07 02:35] LABS: Platelet Count 35 T/CUMM (130-400)
[2018-07-07] MEDS: PANTOPRAZOLE 40 MG TABLET PO SCH ×2 (08:29→21:02)
[2018-07-07] MEDS: METOCLOPRAMIDE 5 MG TABLET PO SCH ×2 (08:29→21:03)
[2018-07-07] MEDS: CIPROFLOXACIN 0.3% OPH SOLN 2.5 ML BOTTLE RIGHT EYE SCH ×4 (08:29→21:04)
[2018-07-07] MEDS: NYSTATIN 500,000 UNIT/5 ML UDCUP SWISH/SWAL SCH ×5 (08:30→21:03)
[2018-07-07] MEDS: ALLOPURINOL 100 MG TABLET PO SCH (08:30)
[2018-07-07] MEDS: MYCOPHENOLATE 180 MG TABLET PO SCH (08:30)
[2018-07-07] MEDS: MAGNESIUM OXIDE 400 MG TABLET PO SCH ×2 (08:30→21:03)
[2018-07-07] MEDS: predniSONE 10 MG TABLET PO SCH (08:30)
[2018-07-07] MEDS: ZINC SULFATE 220 MG CAPSULE PO SCH (08:30)
[2018-07-07] MEDS: MEGESTROL 400 MG/10 ML UDCUP PO SCH (08:30)
[2018-07-07] MEDS: SODIUM BICARBONATE 650 MG TABLET PO SCH ×2 (08:30→21:02)
[2018-07-07] MEDS: cycloSPORINE OPH EMUL 1 VIAL BOTH EYES SCH ×2 (08:50→21:04)
[2018-07-07 08:56] LABS: Hematocrit 29.3 VOL% (42.0-52.0); Hemoglobin 9.4 GM/DL (14.0-18.0); Immature Granulocytes % 0.9 %; Immature Granulocytes Absolute 0.04 #; Lymphocytes # 0.5 10*3/uL (1.4-4.0); Lymphocytes % 12.5 % (21.2-54.2); Mean Corpuscular HGB Conc 32.1 GM/DL (32-36); Mean Corpuscular Hemoglobin 29 PG (27-34); Mean Corpuscular Volume 89.6 FL (87-102); Mean Platelet Volume 13.6 FL (9.6-12.0); Monocytes # 0.2 10*3/uL (0.11-0.8); Monocytes % 4.2 % (1.7-12.7); Neutrophils # 3.5 10*3/uL (1.4-7.4); Neutrophils % 82.4 % (38.7-73.9); Red Blood Count 3.27 MC/CUMM (3.8-5.5); Red Cell Distribution Width 16.4 % (9.3-17.3); White Blood Count 4.3 T/CUMM (4-12)
[2018-07-07 09:01] LABS: Platelet Count 38 T/CUMM (130-400)
[2018-07-07 09:45] LABS: Hypochromasia 1+; Ovalocytes Slight; Platelet Estimate Decreased
[2018-07-07] MEDS: ASCORBIC ACID 500 MG TABLET PO SCH ×2 (12:36→21:02)
[2018-07-07] MEDS: FERROUS SULFATE 325 MG TABLET PO SCH ×2 (12:36→21:03)
[2018-07-07] MEDS: ceFAZolin 1,000 MG in SYRINGE 1 EACH IV SCH (15:41)
[2018-07-07] MEDS: TAMSULOSIN 0.4 MG CAPSULE PO SCH (21:02)
[2018-07-07] MEDS: OXYBUTYNIN XL 5 MG TABLET PO SCH (21:07)
[2018-07-08] MEDS: ceFAZolin 1,000 MG in SYRINGE 1 EACH IV SCH ×2 (05:06→17:31)
[2018-07-08 06:47] LABS: Hematocrit 28.8 VOL% (42.0-52.0); Hemoglobin 9.3 GM/DL (14.0-18.0); Immature Granulocytes % 0.5 %; Immature Granulocytes Absolute 0.02 #; Lymphocytes # 0.6 10*3/uL (1.4-4.0); Lymphocytes % 15.8 % (21.2-54.2); Mean Corpuscular HGB Conc 32.3 GM/DL (32-36); Mean Corpuscular Hemoglobin 29 PG (27-34); Mean Corpuscular Volume 90.3 FL (87-102); Mean Platelet Volume 13.7 FL (9.6-12.0); Monocytes # 0.2 10*3/uL (0.11-0.8); Monocytes % 5.4 % (1.7-12.7); Neutrophils # 3.1 10*3/uL (1.4-7.4); Neutrophils % 78.3 % (38.7-73.9); Red Blood Count 3.19 MC/CUMM (3.8-5.5); Red Cell Distribution Width 16.1 % (9.3-17.3); White Blood Count 3.9 T/CUMM (4-12)
[2018-07-08 06:53] LABS: Platelet Count 24 T/CUMM (130-400)
[2018-07-08 07:09] LABS: Calcium 6.7 MG/DL (8.5-10.1); Hypochromasia 1+; Osmolality,Calculated 286.8 MOS/KG (273-304); Ovalocytes Slight; Platelet Estimate Decreased; Potassium 4.1 MMOL/L (3.5-5.1)
[2018-07-08] MEDS: MEGESTROL 400 MG/10 ML UDCUP PO SCH (10:37)
[2018-07-08] MEDS: MYCOPHENOLATE 180 MG TABLET PO SCH (10:38)
[2018-07-08] MEDS: PANTOPRAZOLE 40 MG TABLET PO SCH ×2 (10:38→20:38)
[2018-07-08] MEDS: SODIUM BICARBONATE 650 MG TABLET PO SCH ×2 (10:38→20:38)
[2018-07-08] MEDS: NYSTATIN 500,000 UNIT/5 ML UDCUP SWISH/SWAL SCH ×4 (10:38→20:38)
[2018-07-08] MEDS: ZINC SULFATE 220 MG CAPSULE PO SCH (10:38)
[2018-07-08] MEDS: ALLOPURINOL 100 MG TABLET PO SCH (10:38)
[2018-07-08] MEDS: METOCLOPRAMIDE 5 MG TABLET PO SCH ×2 (10:38→20:47)
[2018-07-08] MEDS: predniSONE 10 MG TABLET PO SCH (10:39)
[2018-07-08] MEDS: MAGNESIUM OXIDE 400 MG TABLET PO SCH ×2 (10:39→20:38)
[2018-07-08] MEDS: ASCORBIC ACID 500 MG TABLET PO SCH ×2 (10:39→20:38)
[2018-07-08] MEDS: FERROUS SULFATE 325 MG TABLET PO SCH ×2 (10:39→20:38)
[2018-07-08] MEDS: cycloSPORINE OPH EMUL 1 VIAL BOTH EYES SCH ×2 (10:40→20:45)
[2018-07-08] MEDS: CIPROFLOXACIN 0.3% OPH SOLN 2.5 ML BOTTLE RIGHT EYE SCH ×4 (11:01→20:45)
[2018-07-08] MEDS ORDERED: METOPROLOL TARTRATE 5 MG/5 ML VIAL IV PRN (17:08)
[2018-07-08] MEDS: PROPRANOLOL 20 MG TABLET PO SCH ×2 (17:30→20:38)
[2018-07-08] MEDS: TAMSULOSIN 0.4 MG CAPSULE PO SCH (20:38)
[2018-07-08] MEDS: OXYBUTYNIN XL 5 MG TABLET PO SCH (20:38)
[2018-07-09] MEDS: ceFAZolin 1,000 MG in SYRINGE 1 EACH IV SCH ×2 (04:27→21:56)
[2018-07-09 09:23] LABS: Hematocrit 24.7 VOL% (42.0-52.0); Immature Granulocytes % 0.7 %; Immature Granulocytes Absolute 0.03 #; Lymphocytes # 0.8 10*3/uL (1.4-4.0); Lymphocytes % 19.7 % (21.2-54.2); Mean Corpuscular HGB Conc 32.4 GM/DL (32-36); Mean Corpuscular Hemoglobin 30 PG (27-34); Mean Corpuscular Volume 91.8 FL (87-102); Monocytes # 0.2 10*3/uL (0.11-0.8); Monocytes % 5.3 % (1.7-12.7); Neutrophils # 3.1 10*3/uL (1.4-7.4); Neutrophils % 74.3 % (38.7-73.9); Red Blood Count 2.69 MC/CUMM (3.8-5.5); Red Cell Distribution Width 16.4 % (9.3-17.3); White Blood Count 4.2 T/CUMM (4-12)
[2018-07-09] MEDS: NYSTATIN 500,000 UNIT/5 ML UDCUP SWISH/SWAL SCH ×5 (09:24→22:02)
[2018-07-09] MEDS: MEGESTROL 400 MG/10 ML UDCUP PO SCH (09:24)
[2018-07-09] MEDS: predniSONE 10 MG TABLET PO SCH (09:25)
[2018-07-09] MEDS: ASCORBIC ACID 500 MG TABLET PO SCH ×2 (09:25→22:01)
[2018-07-09] MEDS: PANTOPRAZOLE 40 MG TABLET PO SCH ×2 (09:25→21:52)
[2018-07-09] MEDS: SODIUM BICARBONATE 650 MG TABLET PO SCH ×2 (09:25→21:54)
[2018-07-09] MEDS: FERROUS SULFATE 325 MG TABLET PO SCH ×2 (09:25→21:52)
[2018-07-09] MEDS: MAGNESIUM OXIDE 400 MG TABLET PO SCH ×2 (09:25→21:52)
[2018-07-09] MEDS: ZINC SULFATE 220 MG CAPSULE PO SCH (09:25)
[2018-07-09] MEDS: MYCOPHENOLATE 180 MG TABLET PO SCH (09:25)
[2018-07-09] MEDS: METOCLOPRAMIDE 5 MG TABLET PO SCH ×2 (09:25→22:00)
[2018-07-09] MEDS: cycloSPORINE OPH EMUL 1 VIAL BOTH EYES SCH ×2 (09:28→21:56)
[2018-07-09] MEDS: PROPRANOLOL 20 MG TABLET PO SCH ×2 (09:28→21:52)
[2018-07-09] MEDS: CIPROFLOXACIN 0.3% OPH SOLN 2.5 ML BOTTLE RIGHT EYE SCH ×4 (09:28→21:56)
[2018-07-09 09:31] LABS: Platelet Count 16 T/CUMM (130-400)
[2018-07-09 09:44] LABS: Band Neutrophils 2 % (0-10); Hypochromasia 1+; Lymphocytes 11 % (20-55); Ovalocytes Slight; Platelet Estimate Decreased; Segmented Neutrophils 83 % (50-85); Total Cells Counted 100
[2018-07-09] MEDS ORDERED: SODIUM CHLORIDE 0.9% 1,000 ML IV PRN ×2 (10:25→20:31)
[2018-07-09] MEDS ORDERED: PHYTONADIONE 10 MG/1 ML AMP IV ONE (11:15)
[2018-07-09] MEDS: OXYBUTYNIN XL 5 MG TABLET PO SCH (21:52)
[2018-07-09] MEDS: TAMSULOSIN 0.4 MG CAPSULE PO SCH (21:52)
[2018-07-09 21:59] LABS: Hematocrit 27.4 VOL% (42.0-52.0); Hemoglobin 9.3 GM/DL (14.0-18.0)
[2018-07-09] MEDS: oxyCODONE/ACETAMINOPHEN 5-325 MG TABLET PO PRN (22:47)
[2018-07-10 06:11] LABS: Hematocrit 23.4 VOL% (42.0-52.0); Immature Granulocytes % 0.4 %; Immature Granulocytes Absolute 0.02 #; Lymphocytes # 0.8 10*3/uL (1.4-4.0); Mean Corpuscular HGB Conc 34.2 GM/DL (32-36); Mean Corpuscular Hemoglobin 30 PG (27-34); Mean Corpuscular Volume 87.6 FL (87-102); Mean Platelet Volume 13.6 FL (9.6-12.0); Monocytes # 0.3 10*3/uL (0.11-0.8); Monocytes % 6.4 % (1.7-12.7); Neutrophils # 3.6 10*3/uL (1.4-7.4); Neutrophils % 76.2 % (38.7-73.9); Red Blood Count 2.67 MC/CUMM (3.8-5.5); Red Cell Distribution Width 16.3 % (9.3-17.3); White Blood Count 4.7 T/CUMM (4-12)
[2018-07-10 06:14] LABS: Platelet Count 23 T/CUMM (130-400)
[2018-07-10 06:35] LABS: Thyroid Stimulating Hormone 1.05 uIU/ml (0.358-3.74)
[2018-07-10 06:37] LABS: Calcium 6.7 MG/DL (8.5-10.1); Osmolality,Calculated 285.8 MOS/KG (273-304); Potassium 4.3 MMOL/L (3.5-5.1)
[2018-07-10 06:40] LABS: Band Neutrophils 19 % (0-10); Lymphocytes 3 % (20-55); Platelet Estimate Decreased; Segmented Neutrophils 75 % (50-85); Smudge Cells 1+; Total Cells Counted 100
[2018-07-10 06:41] LABS: Anisocytosis 2+; Basophilic Stippling Slight; Poikilocytosis Slight
[2018-07-10] MEDS: PROPRANOLOL 20 MG TABLET PO SCH ×3 (09:29→20:34)
[2018-07-10] MEDS: ASCORBIC ACID 500 MG TABLET PO SCH ×2 (09:35→20:35)
[2018-07-10] MEDS: MEGESTROL 400 MG/10 ML UDCUP PO SCH (09:35)
[2018-07-10] MEDS: METOCLOPRAMIDE 5 MG TABLET PO SCH ×2 (09:35→20:34)
[2018-07-10] MEDS: predniSONE 10 MG TABLET PO SCH (09:35)
[2018-07-10] MEDS: SODIUM BICARBONATE 650 MG TABLET PO SCH ×2 (09:35→20:35)
[2018-07-10] MEDS: ZINC SULFATE 220 MG CAPSULE PO SCH (09:35)
[2018-07-10] MEDS: MYCOPHENOLATE 180 MG TABLET PO SCH (09:35)
[2018-07-10] MEDS: PANTOPRAZOLE 40 MG TABLET PO SCH ×2 (09:35→20:34)
[2018-07-10] MEDS: NYSTATIN 500,000 UNIT/5 ML UDCUP SWISH/SWAL SCH ×5 (09:35→20:33)
[2018-07-10] MEDS: FERROUS SULFATE 325 MG TABLET PO SCH ×2 (09:35→20:35)
[2018-07-10] MEDS: ceFAZolin 1,000 MG in SYRINGE 1 EACH IV SCH (09:36)
[2018-07-10] MEDS: MAGNESIUM OXIDE 400 MG TABLET PO SCH ×2 (09:36→20:36)
[2018-07-10] MEDS: cycloSPORINE OPH EMUL 1 VIAL BOTH EYES SCH ×2 (09:45→20:48)
[2018-07-10] MEDS: CIPROFLOXACIN 0.3% OPH SOLN 2.5 ML BOTTLE RIGHT EYE SCH ×4 (09:45→20:47)
[2018-07-10] MEDS ORDERED: SODIUM CHLORIDE 0.9% 1,000 ML IV PRN ×3 (09:53→09:55)
[2018-07-10] MEDS: TAMSULOSIN 0.4 MG CAPSULE PO SCH (20:35)
[2018-07-10] MEDS: OXYBUTYNIN XL 5 MG TABLET PO SCH (20:37)
[2018-07-10] MEDS: oxyCODONE/ACETAMINOPHEN 5-325 MG TABLET PO PRN (20:39)
[2018-07-10] MEDS: ONDANSETRON 4 MG/2 ML VIAL IV PRN (20:40)
[2018-07-11] MEDS: ONDANSETRON 4 MG/2 ML VIAL IV PRN ×2 (00:50→21:21)
[2018-07-11 05:46] LABS: Calcium 6.2 MG/DL (8.5-10.1); Osmolality,Calculated 290.4 MOS/KG (273-304); Potassium 3.8 MMOL/L (3.5-5.1)
[2018-07-11 06:34] LABS: Hematocrit 19.2 VOL% (42.0-52.0); Immature Granulocytes % 0.6 %; Immature Granulocytes Absolute 0.02 #; Lymphocytes # 0.5 10*3/uL (1.4-4.0); Lymphocytes % 15.6 % (21.2-54.2); Mean Corpuscular HGB Conc 32.8 GM/DL (32-36); Mean Corpuscular Hemoglobin 29 PG (27-34); Mean Corpuscular Volume 89.3 FL (87-102); Mean Platelet Volume 13.5 FL (9.6-12.0); Monocytes # 0.2 10*3/uL (0.11-0.8); Monocytes % 6.5 % (1.7-12.7); Neutrophils # 2.6 10*3/uL (1.4-7.4); Neutrophils % 77.3 % (38.7-73.9); Red Blood Count 2.15 MC/CUMM (3.8-5.5); Red Cell Distribution Width 16.6 % (9.3-17.3); White Blood Count 3.4 T/CUMM (4-12)
[2018-07-11 06:44] LABS: Hemoglobin 6.3 GM/DL (14.0-18.0)
[2018-07-11 06:45] LABS: Platelet Count 36 T/CUMM (130-400)
[2018-07-11 07:30] LABS: Band Neutrophils 3 % (0-10); Lymphocytes 17 % (20-55); Platelet Estimate Decreased; Segmented Neutrophils 78 % (50-85); Total Cells Counted 100
[2018-07-11] MEDS ORDERED: SODIUM CHLORIDE 0.9% 1,000 ML IV PRN (08:29)
[2018-07-11] MEDS: MAGNESIUM OXIDE 400 MG TABLET PO SCH ×2 (09:56→21:01)
[2018-07-11] MEDS: METOCLOPRAMIDE 5 MG TABLET PO SCH ×2 (09:56→21:01)
[2018-07-11] MEDS: predniSONE 10 MG TABLET PO SCH (09:56)
[2018-07-11] MEDS: ASCORBIC ACID 500 MG TABLET PO SCH ×2 (09:56→21:01)
[2018-07-11] MEDS: PANTOPRAZOLE 40 MG TABLET PO SCH ×2 (09:56→21:00)
[2018-07-11] MEDS: MEGESTROL 400 MG/10 ML UDCUP PO SCH (09:56)
[2018-07-11] MEDS: SODIUM BICARBONATE 650 MG TABLET PO SCH ×2 (09:56→21:01)
[2018-07-11] MEDS: FERROUS SULFATE 325 MG TABLET PO SCH ×2 (09:56→21:00)
[2018-07-11] MEDS: ZINC SULFATE 220 MG CAPSULE PO SCH (09:56)
[2018-07-11] MEDS: PROPRANOLOL 20 MG TABLET PO SCH ×2 (09:56→21:00)
[2018-07-11] MEDS: MYCOPHENOLATE 180 MG TABLET PO SCH (09:56)
[2018-07-11] MEDS: CIPROFLOXACIN 0.3% OPH SOLN 2.5 ML BOTTLE RIGHT EYE SCH ×4 (09:59→21:01)
[2018-07-11] MEDS: NYSTATIN 500,000 UNIT/5 ML UDCUP SWISH/SWAL SCH ×4 (10:00→21:01)
[2018-07-11] MEDS: cycloSPORINE OPH EMUL 1 VIAL BOTH EYES SCH ×2 (10:00→21:02)
[2018-07-11] MEDS ORDERED: PHYTONADIONE 5 MG/5 ML ORAL.SYR PO ONE (14:04)
[2018-07-11] MEDS: TAMSULOSIN 0.4 MG CAPSULE PO SCH (21:00)
[2018-07-11] MEDS: OXYBUTYNIN XL 5 MG TABLET PO SCH (21:01)
[2018-07-11] MEDS: ESTROGENS (CONJ) 0.625 MG TABLET PO SCH (21:07)
[2018-07-12] MEDS: ACETAMINOPHEN 325 MG TABLET PO PRN ×2 (04:06→18:43)
[2018-07-12] MEDS: ONDANSETRON 4 MG/2 ML VIAL IV PRN ×2 (04:07→21:02)
[2018-07-12 06:27] LABS: Hematocrit 26.7 VOL% (42.0-52.0); Immature Granulocytes % 0.4 %; Immature Granulocytes Absolute 0.02 #; Lymphocytes # 0.6 10*3/uL (1.4-4.0); Lymphocytes % 13.7 % (21.2-54.2); Mean Corpuscular HGB Conc 33.3 GM/DL (32-36); Mean Corpuscular Hemoglobin 30 PG (27-34); Mean Corpuscular Volume 90.8 FL (87-102); Mean Platelet Volume 14.6 FL (9.6-12.0); Monocytes # 0.3 10*3/uL (0.11-0.8); Neutrophils # 3.7 10*3/uL (1.4-7.4); Neutrophils % 79.9 % (38.7-73.9); Red Blood Count 2.94 MC/CUMM (3.8-5.5); Red Cell Distribution Width 15.9 % (9.3-17.3); White Blood Count 4.7 T/CUMM (4-12)
[2018-07-12 06:29] LABS: Hemoglobin 8.9 GM/DL (14.0-18.0)
[2018-07-12 06:30] LABS: Platelet Count 25 T/CUMM (130-400)
[2018-07-12 06:56] LABS: Calcium 6.8 MG/DL (8.5-10.1); Osmolality,Calculated 289.5 MOS/KG (273-304); Potassium 4.3 MMOL/L (3.5-5.1)
[2018-07-12] MEDS: PANTOPRAZOLE 40 MG TABLET PO SCH ×2 (09:53→20:58)
[2018-07-12] MEDS: SODIUM BICARBONATE 650 MG TABLET PO SCH ×2 (09:53→20:54)
[2018-07-12] MEDS: FERROUS SULFATE 325 MG TABLET PO SCH ×2 (09:53→20:59)
[2018-07-12] MEDS: ASCORBIC ACID 500 MG TABLET PO SCH ×2 (09:54→20:57)
[2018-07-12] MEDS: METOCLOPRAMIDE 5 MG TABLET PO SCH ×2 (09:54→20:54)
[2018-07-12] MEDS: CIPROFLOXACIN 0.3% OPH SOLN 2.5 ML BOTTLE RIGHT EYE SCH ×4 (09:54→21:01)
[2018-07-12] MEDS: NYSTATIN 500,000 UNIT/5 ML UDCUP SWISH/SWAL SCH ×5 (09:54→21:00)
[2018-07-12] MEDS: MEGESTROL 400 MG/10 ML UDCUP PO SCH (09:54)
[2018-07-12] MEDS: MAGNESIUM OXIDE 400 MG TABLET PO SCH ×2 (09:54→20:57)
[2018-07-12] MEDS: predniSONE 10 MG TABLET PO SCH (09:54)
[2018-07-12] MEDS: ZINC SULFATE 220 MG CAPSULE PO SCH (09:54)
[2018-07-12] MEDS: PROPRANOLOL 20 MG TABLET PO SCH ×2 (09:54→20:54)
[2018-07-12] MEDS: MYCOPHENOLATE 180 MG TABLET PO SCH (09:54)
[2018-07-12] MEDS: cycloSPORINE OPH EMUL 1 VIAL BOTH EYES SCH ×2 (09:55→21:01)
[2018-07-12 12:28] LABS: Band Neutrophils 4 % (0-10); Lymphocytes 5 % (20-55); Segmented Neutrophils 87 % (50-85); Total Cells Counted 100
[2018-07-12 12:29] LABS: Anisocytosis 1+; Hypochromasia Slight; Microcytosis Slight; Ovalocytes Slight; Platelet Estimate Decreased; Polychromasia Slight
[2018-07-12] MEDS ORDERED: SODIUM CHLORIDE 0.9% 1,000 ML IV PRN (12:48)
[2018-07-12] MEDS: ESTROGENS (CONJ) 0.625 MG TABLET PO SCH (20:55)
[2018-07-12] MEDS: TAMSULOSIN 0.4 MG CAPSULE PO SCH (20:58)
[2018-07-12] MEDS: OXYBUTYNIN XL 5 MG TABLET PO SCH (20:59)
[2018-07-13 06:39] LABS: Hematocrit 19.7 VOL% (42.0-52.0); Hemoglobin 6.7 GM/DL (14.0-18.0); Immature Granulocytes % 1.1 %; Immature Granulocytes Absolute 0.04 #; Lymphocytes # 0.6 10*3/uL (1.4-4.0); Lymphocytes % 16.4 % (21.2-54.2); Mean Corpuscular Hemoglobin 31 PG (27-34); Mean Corpuscular Volume 90.4 FL (87-102); Mean Platelet Volume 13.1 FL (9.6-12.0); Monocytes # 0.2 10*3/uL (0.11-0.8); Monocytes % 6.7 % (1.7-12.7); Neutrophils # 2.7 10*3/uL (1.4-7.4); Neutrophils % 75.8 % (38.7-73.9); Platelet Count 42 T/CUMM (130-400); Red Blood Count 2.18 MC/CUMM (3.8-5.5); White Blood Count 3.6 T/CUMM (4-12)
[2018-07-13 06:58] LABS: Calcium 6.9 MG/DL (8.5-10.1); Osmolality,Calculated 290.4 MOS/KG (273-304); Potassium 4.1 MMOL/L (3.5-5.1)
[2018-07-13 08:02] LABS: Band Neutrophils 2 % (0-10); Lymphocytes 17 % (20-55); Segmented Neutrophils 78 % (50-85); Total Cells Counted 100
[2018-07-13 08:03] LABS: Hypochromasia Slight; Microcytosis 1+; Ovalocytes Slight
[2018-07-13 08:04] LABS: Platelet Estimate Decreased
[2018-07-13] MEDS ORDERED: SODIUM CHLORIDE 0.9% 1,000 ML IV PRN (08:09)
[2018-07-13] MEDS: PANTOPRAZOLE 40 MG TABLET PO SCH ×2 (10:23→21:25)
[2018-07-13] MEDS: METOCLOPRAMIDE 5 MG TABLET PO SCH ×2 (10:23→21:25)
[2018-07-13] MEDS: MEGESTROL 400 MG/10 ML UDCUP PO SCH (10:24)
[2018-07-13] MEDS: ASCORBIC ACID 500 MG TABLET PO SCH ×2 (10:24→21:25)
[2018-07-13] MEDS: NYSTATIN 500,000 UNIT/5 ML UDCUP SWISH/SWAL SCH ×5 (10:24→21:26)
[2018-07-13] MEDS: SODIUM BICARBONATE 650 MG TABLET PO SCH ×2 (10:24→21:25)
[2018-07-13] MEDS: predniSONE 10 MG TABLET PO SCH (10:24)
[2018-07-13] MEDS: FERROUS SULFATE 325 MG TABLET PO SCH ×2 (10:24→21:25)
[2018-07-13] MEDS: ZINC SULFATE 220 MG CAPSULE PO SCH (10:24)
[2018-07-13] MEDS: PROPRANOLOL 20 MG TABLET PO SCH ×2 (10:24→21:25)
[2018-07-13] MEDS: MAGNESIUM OXIDE 400 MG TABLET PO SCH ×2 (10:25→21:25)
[2018-07-13] MEDS: MYCOPHENOLATE 180 MG TABLET PO SCH (10:25)
[2018-07-13] MEDS: CIPROFLOXACIN 0.3% OPH SOLN 2.5 ML BOTTLE RIGHT EYE SCH ×4 (12:28→21:26)
[2018-07-13] MEDS: cycloSPORINE OPH EMUL 1 VIAL BOTH EYES SCH ×2 (12:29→21:27)
[2018-07-13 20:15] LABS: Hematocrit 26.8 VOL% (42.0-52.0); Hemoglobin 8.8 GM/DL (14.0-18.0)
[2018-07-13] MEDS: TAMSULOSIN 0.4 MG CAPSULE PO SCH (21:25)
[2018-07-13] MEDS: OXYBUTYNIN XL 5 MG TABLET PO SCH (21:25)
[2018-07-13] MEDS: ESTROGENS (CONJ) 0.625 MG TABLET PO SCH (21:25)
[2018-07-14] MEDS: SODIUM BICARBONATE 650 MG TABLET PO SCH (09:20)
[2018-07-14] MEDS: predniSONE 10 MG TABLET PO SCH (09:20)
[2018-07-14] MEDS: MYCOPHENOLATE 180 MG TABLET PO SCH (09:20)
[2018-07-14] MEDS: METOCLOPRAMIDE 5 MG TABLET PO SCH (09:20)
[2018-07-14] MEDS: PANTOPRAZOLE 40 MG TABLET PO SCH (09:21)
[2018-07-14] MEDS: MAGNESIUM OXIDE 400 MG TABLET PO SCH (09:21)
[2018-07-14] MEDS: MEGESTROL 400 MG/10 ML UDCUP PO SCH (09:21)
[2018-07-14] MEDS: ASCORBIC ACID 500 MG TABLET PO SCH (09:21)
[2018-07-14] MEDS: ZINC SULFATE 220 MG CAPSULE PO SCH (09:21)
[2018-07-14] MEDS: FERROUS SULFATE 325 MG TABLET PO SCH (09:21)
[2018-07-14] MEDS: PROPRANOLOL 20 MG TABLET PO SCH (09:26)
[2018-07-14] MEDS: cycloSPORINE OPH EMUL 1 VIAL BOTH EYES SCH (09:33)
[2018-07-14] MEDS: CIPROFLOXACIN 0.3% OPH SOLN 2.5 ML BOTTLE RIGHT EYE SCH ×2 (09:33→13:43)
[2018-07-14] MEDS: NYSTATIN 500,000 UNIT/5 ML UDCUP SWISH/SWAL SCH ×2 (09:33→13:43)
[2018-07-14 17:05] VITALS: BP 122/72
== END 2018-07-14 17:03 | disposition hospice, home (50) | DRG 813 ==
LOC: N.ED 23:46 → N.EDINP 07-03 01:24 → SUATTDRO 07-03 01:24 → N.5E 07-03 02:19 → N.CC 07-03 17:43 → N.5E 07-04 12:27
PROVIDERS: ADMIT Internal Medicine; ATTEND Internal Medicine Geriatric Medicine